=== PATIENT | female | born 1955 | race Caucasian/White ===

== ENCOUNTER 2018-07-02 18:53 | Emergency (ER) | payer MEDICAID, SELFPAY ==
[2018-07-02] VITALS (58 sets, daily range): BP systolic 56–137; BP diastolic 31–92; PULSE 0–126; RESP 11–42; TEMP 36.6; O2SAT 66–97
[2018-07-02] MEDS: Normal Saline 1,000 ML 1000 ML IV ×2 (19:17→19:20)
--- NOTE | 2018-07-02 19:21 | DI.CT_ITS ---
SYMPTOMS/DIAGNOSIS: PROFUSE DIARRHEA, RIGHT LOWER QUADRANT TENDERNESS CHEST, ABDOMEN AND PELVIC CT: Images were performed from the clavicles through the ischial tuberosities after IV and without oral contrast. CHEST CT: There is a tiny left pleural effusion. There are dependent changes seen posteriorly in the lungs. No pneumothorax is seen. There are fractures of the left 7th and 8th ribs anterolaterally. There is no pneumothorax. There is fluid seen within the esophagus, which could indicate reflux. No thoracic spine fracture is seen. A catheter is noted in the superior vena cava. ABDOMEN AND PELVIS: The liver, spleen, gallbladder, adrenals and kidneys appear intact. The pancreas is somewhat atrophic. Fluid is seen throughout the colon, which also shows some wall thickening. The findings are consistent with colitis. The findings appear most prominent in the transverse and ascending colon. The appendix appears normal. There is no small bowel dilatation, free air or free fluid. There is calcification in the aorta but no evidence of an aneurysm. The kidneys, bladder, uterus and ovaries are unremarkable. There is a small fatty-containing umbilical hernia. Degenerative changes are noted in the spine. IMPRESSION: Left anterolateral 7th and 8th rib fractures. No pneumothorax. Wall thickening of the ascending and transverse colon could indicate colitis.
[2018-07-02 19:47] LABS: Abs Immature Grans 0.08 k/cumm (0.0-0.09); Absolute Basophil Count 0.05 k/cumm (0.0-0.2); Basophils % 0.2; Eosinophils % 1.2; HCT 47.1 % (36.0-46.0); HGB 15.7 g/dL (12.0-15.5); Immature Grans % 0.3; Lymphocytes % 5.4; Mean Corp. HGB Concentration 33.3 g/dL (32.0-36.0); Mean Corpuscular Hemoglobin 29.5 pg (27.0-33.0); Mean Corpuscular Volume 88.5 fL (80-95); Mean Platelet Volume 10.6 fL (8.0-11.0); Monocytes % 4.4; Neutrophils % 88.5; Platelet Count 361 x1000/uL (130-400); RBC 5.32 m/cumm (4.00-5.20); RBC Distribution Width 14.1 % (11.7-14.6); White Blood Cell Count 24.73 k/cumm (4.4-10.8)
[2018-07-02] MEDS: Normal Saline-STERILE FIELD 0.9% 10 ML SYR 30 ML (19:55)
[2018-07-02 19:56] LABS: Lipase 107 U/L (73-393)
[2018-07-02 20:00] LABS: Absolute Lymphocyte Count 1.34 k/cumm (1.2-3.4); Absolute Monocyte Count 1.09 k/cumm (0.11-0.7); Absolute Neutrophil Count 21.89 k/cumm (1.2-6.7)
[2018-07-02 20:03] LABS: ALT 22 U/L (12-78); AST 18 U/L (15-37); Albumin 3.9 g/dL (3.4-5.0); Alkaline Phosphatase 168 U/L (46-116); Anion Gap 12.6 mmol/L (3-11); BUN 13 mg/dL (7-18); Bilirubin, Total 0.7 mg/dL (0.2-1.0); CO2 26.4 mmol/L (21.0-32.0); CREATININE 1.14 mg/dL (0.55-1.02); Calcium 9.5 mg/dL (8.5-10.1); Chloride 101 mmol/L (98-107); Estimated GFR 48.62 (mL/min/1.73m2); Glucose 126 mg/dL (70-100); Potassium 4.2 mmol/L (3.5-5.1); Sodium 140 mmol/L (136-145); Total Protein 8.2 g/dL (6.4-8.2)
--- NOTE | 2018-07-02 20:07 | DI.RAD_ITS ---
SYMPTOM/DIAGNOSIS: CENTRAL LINE PLACEMENT. PORTABLE CHEST: Comparison is made with 22 April 2016. The heart size is normal. Central venous catheter has been inserted via the right internal jugular The tip lies at the lower SVC. No pneumothorax, infiltrate or effusion seen. IMPRESSION: Satisfactory positioning of right internal jugular catheter.
[2018-07-02 20:23] LABS: TSH 1.21 uIU/mL (0.358-3.74)
[2018-07-02] MEDS: Ondansetron 4 MG/2 ML VIAL IVP (20:45)
--- NOTE | 2018-07-02 20:48 | W.ED.GENAD ---
Discharge Plan Disposition Patient Disposition: [facility] Condition: Improving Discharge Details Chief Complaint: GenMedical Clinical Impression: Colitis, Sepsis, Septic shock, Acute dehydration, Closed rib fracture Primary Care Provider: JOSE LEWIS ED Provider: Jose Trujillo Home Meds and New Rx's Prescriptions: No Action fluoxetine [Prozac] 40 MG capsule 80 mg PO DAILY RF: 0 aspirin [Aspirin Low Dose] 81 MG tablet,delayed release (DR/EC) 81 mg PO DAILY RF: 0 simvastatin 40 MG tablet 40 mg PO DAILY RF: 0 amitriptyline 25 MG tablet 25 mg PO HS RF: 0 oxybutynin chloride 5 MG tablet extended release 24hr 10 mg PO DAILY RF: 0 ranitidine HCl 150 MG capsule 150 mg PO BID RF: 0 albuterol sulfate [Proventil HFA] 6.7 GM HFA aerosol inhaler 2 puff Inhalation Q4H PRN RF: 0 hydromorphone [Dilaudid] 4 MG tablet 4 mg PO Q4H PRN RF: 0 fluticasone [Flonase Allergy Relief] 9.9 ML spray,suspension 9.9 ml NS RF: 0 naproxen 500 MG tablet 500 mg PO DAILY RF: 0 nystatin (bulk) 1 EACH powder 1 ea Topical BID RF: 0 cetirizine [Zyrtec] 10 MG capsule 10 mg PO DAILY RF: 0 enalapril maleate 5 MG tablet 5 mg PO DAILY RF: 0 Discharge Data Discharge Date/Time-TO BE ENTERED AT DEPARTURE: 07/03/18 01:20 Medical Decision Making <Kareem Brown DO - Last Filed: 07/03/18 14:09> [facility] Narrative Medical decision making narrative: 1930 p.m. This is a pleasant 62-year-old female who presents for abdominal pain, nausea, and vomiting. 2 days ago she had a rib fracture after hitting a rock while swimming. She has been doing well since then however 2 hours prior to arrival she fell onto a pile of yard sale items, and has had pain in her abdomen ever since, with associated vomiting and diffuse watery diarrhea. She does not have red flags of foreign travel or antibiotic use or sick contacts. Physical exam demonstrates a tender abdomen, with rebound in the right lower quadrant. She has her tenderness in her chest secondary to her rib fractures which is all reproducible, but no other signs of significant trauma. Vital signs are stable at this point. Temperature is normal. We will get a laboratory workup, perform imaging of the chest abdomen and pelvis to rule out any acute process versus worsening process, as well as appendicitis or other acute intra-abdominal pathology. Of note bedside ultrasound was performed on assessment and patient demonstrates good lung sliding bilaterally. Bedside fast exam was complicated secondary to the patient's body habitus. 2030 p.m. Although the patient's initial vital signs were normal I was called into the room to assess the patient as her repeat blood pressures have been decreasing. Initial blood pressure was 134/85 however over the last 10-15 minutes the patient's blood pressures have been steadily dropping, most recent blood pressure was confirmed twice on different arms and by manual pressure as well and is confirmed to be in the 50 systolic. Patient is tachycardic. A second IV was ordered, 2 L of normal saline were pressure bagged for administration. After the first liter the patient had no improvement of her blood pressure. The decision was made for definitive IV access, as well as potential for pressor use. A right IJ was successfully placed without complication. Portable chest x-ray reveals good placement. I have added lactate, blood cultures, we will start the patient on broad-spectrum antibiotics. We will continue IV fluid resuscitation and send her down to CT scan immediately to evaluate for any acute intra-abdominal process. Differential at this time includes intra-abdominal bleeding, severe chronic dehydration secondary to vomiting and profuse diarrhea, sepsis. EKG 20: 21 Rate 97, KS 134, QTc 478, QRS 96, sinus rhythm, no significant ST elevations or depressions. No significant T-wave inversions. 9 CT scan has been performed and demonstrates diffuse swelling in the colon throughout. Concerning for pancolitis. We are still awaiting results from formal radiology read. Please have discussed the case with Dr. Long, the on-call surgeon, and she will come and evaluate the patient review the images. The patient will be signed out to my colleague Dr. Trujillo. 2219. Patient has been seen and assessed by surgery. They do not feel that she requires any acute surgical management at this time. They do agree with the current plan. CT scan results have returned from virtual radiology and show CT findings of the colon suggesting infectious inflammatory colitis with diffuse fluid throughout the colon with mild mucosal thickening especially through the transverse portion of the colon. There is also a left seventh and eighth rib fractures. We will contact the hospitalist for admission to the medical service. 30 minutes of critical care time was spent on this patient reviewing labs, clinical disposition, consultation with surgical and medical specialists. Procedure: Internal Jugular Central Venous Catheter Indication: Hemodynamic monitoring/Intravenous access PROCEDURE SUMMARY: A time-out was performed. The patient?s right neck region was prepped and draped in sterile fashion using chlorhexidine scrub. Anesthesia was achieved with 1% lidocaine. The internal jugular vein was accessed under ultrasound guidance using a finder needle.Venous blood was withdrawn. A guidewire was advanced through the needle. A small incision was made with a 10 blade scalpel and the dilator was advanced over the guidewire until appropriate dilation was obtained. The dilator was removed and a triple lumen catheter was advanced over the guidewire and secured into place with 2 simple interrupted sutures. At time of procedure completion, all ports aspirated and flushed properly. Post-procedure x-ray shows the tip of the catheter within the superior vena cava. ESTIMATED BLOOD LOSS: 5ml?s The patient tolerated the procedure well there were no complications. Lab Data Lab Results 07/02/18 07/02/18 07/02/18 Range/Units 19:40 19:40 19:40 WBC 24.73 H (4.4-10.8) k/cumm RBC 5.32 H (4.00-5.20) m/cumm Hgb 15.7 H (12.0-15.5) g/dL Hct 47.1 H (36.0-46.0) % MCV 88.5 (80-95) fL MCH 29.5 (27.0-33.0) pg MCHC 33.3 (32.0-36.0) g/dL RDW 14.1 (11.7-14.6) % Plt Count 361 (130-400) x1000/uL MPV 10.6 (8.0-11.0) fL Immature Gran % 0.3 Neutrophils % 88.5 Lymphocytes % 5.4 Monocytes % 4.4 Eosinophils % 1.2 Basophils % 0.2 Absolute Neutrophils 21.89 H (1.2-6.7) k/cumm Absolute Lymphocytes 1.34 (1.2-3.4) k/cumm Absolute Monocytes 1.09 H (0.11-0.7) k/cumm Absolute Eosinophils 0.30 (0.0-0.7) k/cumm Absolute Basophils 0.05 (0.0-0.2) k/cumm Differential Comment Comment Sodium 140 (136-145) mmol/L Potassium 4.2 (3.5-5.1) mmol/L Chloride 101 (98-107) mmol/L Carbon Dioxide 26.4 (21.0-32.0) mmol/L Anion Gap 12.6 H (3-11) mmol/L BUN 13 (7-18) mg/dL Creatinine 1.14 H (0.55-1.02) mg/dL Estimated GFR/1.73 m2 48.62 (mL/min/1.73m2) Glucose 126 H (70-100) mg/dL Lactate (0.6-1.4) mmol/L Calcium 9.5 (8.5-10.1) mg/dL Total Bilirubin 0.7 (0.2-1.0) mg/dL AST 18 (15-37) U/L ALT 22 (12-78) U/L Alkaline Phosphatase 168 H (46-116) U/L Total Protein 8.2 (6.4-8.2) g/dL Albumin 3.9 (3.4-5.0) g/dL Lipase 107 (73-393) U/L TSH (0.358-3.74) uIU/mL 07/02/18 07/02/18 Range/Units 19:40 20:24 WBC (4.4-10.8) k/cumm RBC (4.00-5.20) m/cumm Hgb (12.0-15.5) g/dL Hct (36.0-46.0) % MCV (80-95) fL MCH (27.0-33.0) pg MCHC (32.0-36.0) g/dL RDW (11.7-14.6) % Plt Count (130-400) x1000/uL MPV (8.0-11.0) fL Immature Gran % Neutrophils % Lymphocytes % Monocytes % Eosinophils % Basophils % Absolute Neutrophils (1.2-6.7) k/cumm Absolute Lymphocytes (1.2-3.4) k/cumm Absolute Monocytes (0.11-0.7) k/cumm Absolute Eosinophils (0.0-0.7) k/cumm Absolute Basophils (0.0-0.2) k/cumm Differential Comment Sodium (136-145) mmol/L Potassium (3.5-5.1) mmol/L Chloride (98-107) mmol/L Carbon Dioxide (21.0-32.0) mmol/L Anion Gap (3-11) mmol/L BUN (7-18) mg/dL Creatinine (0.55-1.02) mg/dL Estimated GFR/1.73 m2 (mL/min/1.73m2) Glucose (70-100) mg/dL Lactate 2.0 H (0.6-1.4) mmol/L Calcium (8.5-10.1) mg/dL Total Bilirubin (0.2-1.0) mg/dL AST (15-37) U/L ALT (12-78) U/L Alkaline Phosphatase (46-116) U/L Total Protein (6.4-8.2) g/dL Albumin (3.4-5.0) g/dL Lipase (73-393) U/L TSH 1.21 (0.358-3.74) uIU/mL <Jose Trujillo MD - Last Filed: 07/03/18 00:44> [facility] Narrative Medical decision making narrative: Received signout from Dr Brown on the patient. Please see his note regarding details of the history, presentation, exam and medical decision-making. Patient was seen by Dr. Corey in the emergency department. [place] to have the need for intensive monitoring and ICU level care which is not available at [facility]. Patient has had persistently low blood pressures currently approximately 93 systolic. She has had 3500 cc of fluid, has made 600 cc of urine, and had a documented 1200 cc stool output. Patient has been covered with broad-spectrum antibiotics, repeat lactic acid level obtained at 0.6 Case discussed with on-call hospitalist at [facility], Dr España. He states that the patient is responding to current management, he asks that we keep the patient at [facility], and contact [facility] if need for pressors or ICU level care. [facility], the patient home institution unable to accept in transfer. No bed available at [facility]. Patient accepted in transfer to [facility] by Dr Oh. HPI - General Adult <Kareem Brown DO - Last Filed: 07/03/18 14:09> General Date/Time Provider Initiated Documentation: 07/02/18 19:21. HPI Narrative: This is a pleasant 62-year-old female with a past medical history significant for asthma, PTSD, hyperlipidemia who takes a daily aspirin, and hypertension. She presents today for nausea vomiting and diarrhea. Patient states that 2 days ago she was [place], slid [place] some rocks and hit her left ribs on a rock. She went to a local emergency department where she was diagnosed with a rib fracture, and sent home on indomethacin. She has been taking that medication since then. She has been doing well until roughly 2 hours prior to arrival when she was walking, tripped, and fell on her anterior abdomen. She fell on a pile of various articles from a garage/yard sale. After that she noted moderate abdominal pain, she had diffuse watery diarrhea generalized abdominal pain worse in the lower quadrants bilaterally, as well as nausea with some vomiting. There are no aggravating or relieving factors. She denies seeing any blood in the vomit or the diarrhea. She does admit to the continued chest pain, states that it is pleuritic. Her unchanged since the initial incident. She denies any arm pain, neck pain, numbness, tingling. Patient denies any IV or illicit drug use. She denies any previous abdominal surgeries. She denies any recent antibiotic use. She denies any other sick contacts. She denies any foreign travel. She has no other complaints at this time. Related Data Home Medications Medication Instructions Recorded Confirmed albuterol sulfate [Proventil Hfa] 2 puff INHALATION Q4H PRN inhaler 03/08/16 07/02/18 NS amitriptyline 25 mg PO HS tab-cap NS 03/08/16 07/02/18 aspirin [Low Dose Aspirin Ec] 81 mg PO DAILY tab-cap NS 03/08/16 07/02/18 cetirizine [Zyrtec] 10 mg PO DAILY NS 03/08/16 07/02/18 enalapril maleate 5 mg PO DAILY tab-cap NS 03/08/16 07/02/18 fluoxetine [Prozac] 80 mg PO DAILY tab-cap NS 03/08/16 07/02/18 fluticasone [Flonase Allergy 9.9 ml NS 03/08/16 Relief] hydromorphone [Dilaudid] 4 mg PO Q4H PRN tab-cap NS 03/08/16 07/02/18 naproxen 500 mg PO DAILY tab-cap NS 03/08/16 07/02/18 nystatin (bulk) 1 ea TOPICAL BID NS 03/08/16 oxybutynin chloride 10 mg PO DAILY tab-cap NS 03/08/16 07/02/18 ranitidine HCl 150 mg PO BID tab-cap NS 03/08/16 07/02/18 simvastatin 40 mg PO DAILY tab-cap NS 03/08/16 07/02/18 Allergies Allergy/AdvReac Type Severity Reaction Status Date / Time diclofenac sodium Allergy Severe Unverified 07/02/18 20:29 [From Voltaren] sodium sulfate Allergy Severe Unverified 07/02/18 20:29 chlorthalidone Allergy Mild Unverified 07/02/18 20:29 General Stated Complaint: GenMedical WILLIE: 2 Review of Systems <Kareem Brown DO - Last Filed: 07/03/18 14:09> Review of Systems 10 point review of systems was performed, pertinent positives and negatives are noted in the history of present illness. Exam <Kareem Brown DO - Last Filed: 07/03/18 14:09> Narrative Exam Narrative: 1.Const: Well-nourished, Well-developed, appearing stated age 2.Eyes: PERRL, no conjunctival injection, and symmetrical lids. 3.ENT: Atraumatic external nose and ears. Moist MM. Neck: Symmetric, trachea midline, No thyromegaly. There is no evidence of raccoon eyes, carlton sign, CSF rhinorrhea, mastoid tenderness, cranial crepitus, hemotympanum, exophthalmos, or hyphema. Patient demonstrates intact dentition with no signs of tooth avulsion or fracture, no signs of jaw deformity, no evidence of a LeFort's fracture, with an intact palate, nose and orbital region. There is no evidence of a nasal septal hematoma. No proptosis. Jaw closes symmetrically. Airway is clear. 4.CVS: +S1/S2, No murmurs or gallops. Peripheral pulses 2+ and equal in all extremities. Brisk capillary refill in all extremities. Generalized tenderness around chest, worse on the left than the right. Some bruising is noted. No evidence of flail chest. Portable bedside ultrasound upon patient's arrival demonstrated good lung sliding bilaterally. 5.RESP: Unlabored respiratory effort. Clear to auscultation bilaterally. No wheezes rales or rhonchi 6.GI: Soft,, voluntary guarding. Generalized tenderness throughout. Worse in the lower abdominal quadrants bilaterally, particularly the right. Patient does have positive rebound on the right lower quadrant. No evidence of bruising, perforation or trauma. 7.MSK: Normocephalic/Atraumatic, Extremities w/o deformity or ttp No cyanosis or clubbing, Normal movement of all extremities, pelvis is stable, no pain with logroll of the lower extremities. Normal movement of the upper extremities. 8.Skin: Warm, Dry. No rashes or lesions. 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 Sensation grossly intact, no focal neurologic deficits. 10.Psych: (AAO) x3. Appropriate mood and affect Course <Kareem Brown, - Last Filed: 07/03/18 14:09> Vital Signs Temperature 36.6 C 07/02/18 19:15 Pulse 103 H 07/02/18 19:15 Respiratory Rate 24 07/02/18 19:15 Blood Pressure 134/85 07/02/18 19:15 Pulse Oximetry 97 07/02/18 19:15 Temperature 36.6 C 07/02/18 19:15 Pulse 92 H 07/02/18 20:32 Respiratory Rate 20 07/02/18 20:32 Blood Pressure 124/66 07/02/18 20:32 Pulse Oximetry 95 07/02/18 20:32 Lab/Test Results Lab/Test Results: Laboratory Tests 07/02/18 07/02/18 07/02/18 19:40 19:40 19:40 WBC 24.73 H RBC 5.32 H Hgb 15.7 H Hct 47.1 H MCV 88.5 MCH 29.5 MCHC 33.3 RDW 14.1 Plt Count 361 MPV 10.6 Immature Gran % 0.3 Neutrophils % 88.5 Lymphocytes % 5.4 Monocytes % 4.4 Eosinophils % 1.2 Basophils % 0.2 Absolute Neutrophils 21.89 H Absolute Lymphocytes 1.34 Absolute Monocytes 1.09 H Absolute Eosinophils 0.30 Absolute Basophils 0.05 Differential Comment Comment Sodium 140 Potassium 4.2 Chloride 101 Carbon Dioxide 26.4 Anion Gap 12.6 H BUN 13 Creatinine 1.14 H Estimated GFR/1.73 m2 48.62 Glucose 126 H Lactate Calcium 9.5 Total Bilirubin 0.7 AST 18 ALT 22 Alkaline Phosphatase 168 H Total Protein 8.2 Albumin 3.9 Lipase 107 TSH 07/02/18 07/02/18 19:40 20:24 WBC RBC Hgb Hct MCV MCH MCHC RDW Plt Count MPV Immature Gran % Neutrophils % Lymphocytes % Monocytes % Eosinophils % Basophils % Absolute Neutrophils Absolute Lymphocytes Absolute Monocytes Absolute Eosinophils Absolute Basophils Differential Comment Sodium Potassium Chloride Carbon Dioxide Anion Gap BUN Creatinine Estimated GFR/1.73 m2 Glucose Lactate 2.0 H Calcium Total Bilirubin AST ALT Alkaline Phosphatase Total Protein Albumin Lipase TSH 1.21 Sign Out <Kareem Brown DO - Last Filed: 07/03/18 14:09> Sign Out Data: Sign Out Comment: Sepsis, liriano colitis, admit to [facility] Last updated by Kareem Brown DO at 07/02/18 22:31
--- NOTE | 2018-07-02 20:54 | ED.GENADUL_ITS ---
Discharge Plan Disposition Patient Disposition: [facility] Condition: Improving Discharge Details Chief Complaint: GenMedical Clinical Impression: Colitis, Sepsis, Septic shock, Acute dehydration, Closed rib fracture Primary Care Provider: JOSE LEWIS ED Provider: Jose Trujillo Home Meds and New Rx's Prescriptions: No Action fluoxetine [Prozac] 40 MG capsule 80 mg PO DAILY RF: 0 aspirin [Aspirin Low Dose] 81 MG tablet,delayed release (DR/EC) 81 mg PO DAILY RF: 0 simvastatin 40 MG tablet 40 mg PO DAILY RF: 0 amitriptyline 25 MG tablet 25 mg PO HS RF: 0 oxybutynin chloride 5 MG tablet extended release 24hr 10 mg PO DAILY RF: 0 ranitidine HCl 150 MG capsule 150 mg PO BID RF: 0 albuterol sulfate [Proventil HFA] 6.7 GM HFA aerosol inhaler 2 puff Inhalation Q4H PRN RF: 0 hydromorphone [Dilaudid] 4 MG tablet 4 mg PO Q4H PRN RF: 0 fluticasone [Flonase Allergy Relief] 9.9 ML spray,suspension 9.9 ml NS RF: 0 naproxen 500 MG tablet 500 mg PO DAILY RF: 0 nystatin (bulk) 1 EACH powder 1 ea Topical BID RF: 0 cetirizine [Zyrtec] 10 MG capsule 10 mg PO DAILY RF: 0 enalapril maleate 5 MG tablet 5 mg PO DAILY RF: 0 Discharge Data Discharge Date/Time-TO BE ENTERED AT DEPARTURE: 07/03/18 01:20 Medical Decision Making <Kareem Brown DO - Last Filed: 07/03/18 14:09> [facility] Narrative Medical decision making narrative: 1930 p.m. This is a pleasant 62-year-old female who presents for abdominal pain , nausea, and vomiting. 2 days ago she had a rib fracture after hitting a rock while swimming. She has been doing well since then however 2 hours prior to arrival she fell onto a pile of yard sale items, and has had pain in her abdomen ever since, with associated vomiting and diffuse watery diarrhea. She does not have red flags of foreign travel or antibiotic use or sick contacts. Physical exam demonstrates a tender abdomen, with rebound in the right lower quadrant. She has her tenderness in her chest secondary to her rib fractures which is all reproducible, but no other signs of significant trauma. Vital signs are stable at this point. Temperature is normal. We will get a laboratory workup, perform imaging of the chest abdomen and pelvis to rule out any acute process versus worsening process, as well as appendicitis or other acute intra-abdominal pathology. Of note bedside ultrasound was performed on assessment and patient demonstrates good lung sliding bilaterally. Bedside fast exam was complicated secondary to the patient's body habitus. 2030 p.m. Although the patient's initial vital signs were normal I was called into the room to assess the patient as her repeat blood pressures have been decreasing. Initial blood pressure was 134/85 however over the last 10-15 minutes the patient's blood pressures have been steadily dropping, most recent blood pressure was confirmed twice on different arms and by manual pressure as well and is confirmed to be in the 50 systolic. Patient is tachycardic. A second IV was ordered, 2 L of normal saline were pressure bagged for administration. After the first liter the patient had no improvement of her blood pressure. The decision was made for definitive IV access, as well as potential for pressor use. A right IJ was successfully placed without complication. Portable chest x-ray reveals good placement. I have added lactate, blood cultures, we will start the patient on broad-spectrum antibiotics. We will continue IV fluid resuscitation and send her down to CT scan immediately to evaluate for any acute intra-abdominal process. Differential at this time includes intra-abdominal bleeding, severe chronic dehydration secondary to vomiting and profuse diarrhea, sepsis. EKG 20: 21 Rate 97, IN 134, QTc 478, QRS 96, sinus rhythm, no significant ST elevations or depressions. No significant T-wave inversions. 9 CT scan has been performed and demonstrates diffuse swelling in the colon throughout. Concerning for pancolitis. We are still awaiting results from formal radiology read. Please have discussed the case with Dr. Long, the on- call surgeon, and she will come and evaluate the patient review the images. The patient will be signed out to my colleague Dr. Trujillo. 2219. Patient has been seen and assessed by surgery. They do not feel that she requires any acute surgical management at this time. They do agree with the current plan. CT scan results have returned from virtual radiology and show CT findings of the colon suggesting infectious inflammatory colitis with diffuse fluid throughout the colon with mild mucosal thickening especially through the transverse portion of the colon. There is also a left seventh and eighth rib fractures. We will contact the hospitalist for admission to the medical service. 30 minutes of critical care time was spent on this patient reviewing labs, clinical disposition, consultation with surgical and medical specialists. Procedure: Internal Jugular Central Venous Catheter Indication: Hemodynamic monitoring/Intravenous access PROCEDURE SUMMARY: A time-out was performed. The patient?s right neck region was prepped and draped in sterile fashion using chlorhexidine scrub. Anesthesia was achieved with 1% lidocaine. The internal jugular vein was accessed under ultrasound guidance using a finder needle.Venous blood was withdrawn. A guidewire was advanced through the needle. A small incision was made with a 10 blade scalpel and the dilator was advanced over the guidewire until appropriate dilation was obtained. The dilator was removed and a triple lumen catheter was advanced over the guidewire and secured into place with 2 simple interrupted sutures. At time of procedure completion, all ports aspirated and flushed properly. Post-procedure x-ray shows the tip of the catheter within the superior vena cava. ESTIMATED BLOOD LOSS: 5ml?s The patient tolerated the procedure well there were no complications. Lab Data Lab Results 07/02/18 07/02/18 07/02/18 Range/Units 19:40 19:40 19:40 WBC 24.73 H (4.4-10.8) k/cumm RBC 5.32 H (4.00-5.20) m/cumm Hgb 15.7 H (12.0-15.5) g/dL Hct 47.1 H (36.0-46.0) % MCV 88.5 (80-95) fL MCH 29.5 (27.0-33.0) pg MCHC 33.3 (32.0-36.0) g/dL RDW 14.1 (11.7-14.6) % Plt Count 361 (130-400) x1000/uL MPV 10.6 (8.0-11.0) fL Immature Gran % 0.3 Neutrophils % 88.5 Lymphocytes % 5.4 Monocytes % 4.4 Eosinophils % 1.2 Basophils % 0.2 Absolute Neutrophils 21.89 H (1.2-6.7) k/cumm Absolute Lymphocytes 1.34 (1.2-3.4) k/cumm Absolute Monocytes 1.09 H (0.11-0.7) k/cumm Absolute Eosinophils 0.30 (0.0-0.7) k/cumm Absolute Basophils 0.05 (0.0-0.2) k/cumm Differential Comment Comment Sodium 140 (136-145) mmol/L Potassium 4.2 (3.5-5.1) mmol/L Chloride 101 (98-107) mmol/L Carbon Dioxide 26.4 (21.0-32.0) mmol/L Anion Gap 12.6 H (3-11) mmol/L BUN 13 (7-18) mg/dL Creatinine 1.14 H (0.55-1.02) mg/dL Estimated GFR/1.73 m2 48.62 (mL/min/1.73m2) Glucose 126 H (70-100) mg/dL Lactate (0.6-1.4) mmol/L Calcium 9.5 (8.5-10.1) mg/dL Total Bilirubin 0.7 (0.2-1.0) mg/dL AST 18 (15-37) U/L ALT 22 (12-78) U/L Alkaline Phosphatase 168 H (46-116) U/L Total Protein 8.2 (6.4-8.2) g/dL Albumin 3.9 (3.4-5.0) g/dL Lipase 107 (73-393) U/L TSH (0.358-3.74) uIU/mL 07/02/18 07/02/18 Range/Units 19:40 20:24 WBC (4.4-10.8) k/cumm RBC (4.00-5.20) m/cumm Hgb (12.0-15.5) g/dL Hct (36.0-46.0) % MCV (80-95) fL MCH (27.0-33.0) pg MCHC (32.0-36.0) g/dL RDW (11.7-14.6) % Plt Count (130-400) x1000/uL MPV (8.0-11.0) fL Immature Gran % Neutrophils % Lymphocytes % Monocytes % Eosinophils % Basophils % Absolute Neutrophils (1.2-6.7) k/cumm Absolute Lymphocytes (1.2-3.4) k/cumm Absolute Monocytes (0.11-0.7) k/cumm Absolute Eosinophils (0.0-0.7) k/cumm Absolute Basophils (0.0-0.2) k/cumm Differential Comment Sodium (136-145) mmol/L Potassium (3.5-5.1) mmol/L Chloride (98-107) mmol/L Carbon Dioxide (21.0-32.0) mmol/L Anion Gap (3-11) mmol/L BUN (7-18) mg/dL Creatinine (0.55-1.02) mg/dL Estimated GFR/1.73 m2 (mL/min/1.73m2) Glucose (70-100) mg/dL Lactate 2.0 H (0.6-1.4) mmol/L Calcium (8.5-10.1) mg/dL Total Bilirubin (0.2-1.0) mg/dL AST (15-37) U/L ALT (12-78) U/L Alkaline Phosphatase (46-116) U/L Total Protein (6.4-8.2) g/dL Albumin (3.4-5.0) g/dL Lipase (73-393) U/L TSH 1.21 (0.358-3.74) uIU/mL <Jose Trujillo MD - Last Filed: 07/03/18 00:44> [facility] Narrative Medical decision making narrative: Received signout from Dr Brown on the patient. Please see his note regarding details of the history, presentation, exam and medical decision-making. Patient was seen by Dr. Corey in the emergency department. [place] to have the need for intensive monitoring and ICU level care which is not available at [facility]. Patient has had persistently low blood pressures currently approximately 93 systolic. She has had 3500 cc of fluid, has made 600 cc of urine, and had a documented 1200 cc stool output. Patient has been covered with broad-spectrum antibiotics, repeat lactic acid level obtained at 0.6 Case discussed with on-call hospitalist at [facility], Dr España. He states that the patient is responding to current management, he asks that we keep the patient at [facility], and contact [facility] if need for pressors or ICU level care. [facility], the patient home institution unable to accept in transfer. No bed available at [facility]. Patient accepted in transfer to [facility] by Dr Oh. HPI - General Adult <Kareem Brown DO - Last Filed: 07/03/18 14:09> General Date/Time Provider Initiated Documentation: 07/02/18 19:21 . HPI Narrative: This is a pleasant 62-year-old female with a past medical history significant for asthma, PTSD, hyperlipidemia who takes a daily aspirin, and hypertension. She presents today for nausea vomiting and diarrhea. Patient states that 2 days ago she was [place], slid [place] some rocks and hit her left ribs on a rock. She went to a local emergency department where she was diagnosed with a rib fracture, and sent home on indomethacin. She has been taking that medication since then. She has been doing well until roughly 2 hours prior to arrival when she was walking, tripped , and fell on her anterior abdomen. She fell on a pile of various articles from a garage/yard sale. After that she noted moderate abdominal pain, she had diffuse watery diarrhea generalized abdominal pain worse in the lower quadrants bilaterally, as well as nausea with some vomiting. There are no aggravating or relieving factors. She denies seeing any blood in the vomit or the diarrhea. She does admit to the continued chest pain, states that it is pleuritic. Her unchanged since the initial incident. She denies any arm pain, neck pain, numbness, tingling. Patient denies any IV or illicit drug use. She denies any previous abdominal surgeries. She denies any recent antibiotic use. She denies any other sick contacts. She denies any foreign travel. She has no other complaints at this time. Related Data Home Medications Medication Instructions Recorded Confirmed albuterol sulfate [Proventil Hfa] 2 puff INHALATION Q4H PRN inhaler 03/08/16 NS amitriptyline 25 mg PO HS tab-cap NS 03/08/16 07/02/18 aspirin [Low Dose Aspirin Ec] 81 mg PO DAILY tab-cap NS 03/08/16 07/02/18 cetirizine [Zyrtec] 10 mg PO DAILY NS 03/08/16 07/02/18 enalapril maleate 5 mg PO DAILY tab-cap NS 03/08/16 07/02/18 fluoxetine [Prozac] 80 mg PO DAILY tab-cap NS 03/08/16 07/02/18 fluticasone [Flonase Allergy 9.9 ml NS 03/08/16 Relief] hydromorphone [Dilaudid] 4 mg PO Q4H PRN tab-cap NS 03/08/16 07/02/18 naproxen 500 mg PO DAILY tab-cap NS 03/08/16 07/02/18 nystatin (bulk) 1 ea TOPICAL BID NS 03/08/16 oxybutynin chloride 10 mg PO DAILY tab-cap NS 03/08/16 07/02/18 ranitidine HCl 150 mg PO BID tab-cap NS 03/08/16 07/02/18 simvastatin 40 mg PO DAILY tab-cap NS 03/08/16 07/02/18 Allergies Allergy/AdvReac Type Severity Reaction Status Date / Time diclofenac sodium Allergy Severe Unverified 07/02/18 20:29 [From Voltaren] sodium sulfate Allergy Severe Unverified 07/02/18 20:29 chlorthalidone Allergy Mild Unverified 07/02/18 20:29 General Stated Complaint: GenMedical WILLIE: 2 Review of Systems <Kareem Brown DO - Last Filed: 07/03/18 14:09> Review of Systems 10 point review of systems was performed, pertinent positives and negatives are noted in the history of present illness. Exam <Kareem Brown DO - Last Filed: 07/03/18 14:09> Narrative Exam Narrative: 1.Const: Well-nourished, Well-developed, appearing stated age 2.Eyes: PERRL, no conjunctival injection, and symmetrical lids. 3.ENT: Atraumatic external nose and ears. Moist MM. Neck: Symmetric, trachea midline, No thyromegaly. There is no evidence of raccoon eyes, carlton sign, CSF rhinorrhea, mastoid tenderness, cranial crepitus, hemotympanum, exophthalmos , or hyphema. Patient demonstrates intact dentition with no signs of tooth avulsion or fracture, no signs of jaw deformity, no evidence of a LeFort's fracture, with an intact palate, nose and orbital region. There is no evidence of a nasal septal hematoma. No proptosis. Jaw closes symmetrically. Airway is clear. 4.CVS: +S1/S2, No murmurs or gallops. Peripheral pulses 2+ and equal in all extremities. Brisk capillary refill in all extremities. Generalized tenderness around chest, worse on the left than the right. Some bruising is noted. No evidence of flail chest. Portable bedside ultrasound upon patient's arrival demonstrated good lung sliding bilaterally. 5.RESP: Unlabored respiratory effort. Clear to auscultation bilaterally. No wheezes rales or rhonchi 6.GI: Soft,, voluntary guarding. Generalized tenderness throughout. Worse in the lower abdominal quadrants bilaterally, particularly the right. Patient does have positive rebound on the right lower quadrant. No evidence of bruising , perforation or trauma. 7.MSK: Normocephalic/Atraumatic, Extremities w/o deformity or ttp No cyanosis or clubbing, Normal movement of all extremities, pelvis is stable, no pain with logroll of the lower extremities. Normal movement of the upper extremities. 8.Skin: Warm, Dry. No rashes or lesions. 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 Sensation grossly intact, no focal neurologic deficits. 10.Psych: (AAO) x3. Appropriate mood and affect Course <Kareem Brown, - Last Filed: 07/03/18 14:09> Vital Signs Temperature 36.6 C 07/02/18 19:15 Pulse 103 H 07/02/18 19:15 Respiratory Rate 24 07/02/18 19:15 Blood Pressure 134/85 07/02/18 19:15 Pulse Oximetry 97 07/02/18 19:15 Temperature 36.6 C 07/02/18 19:15 Pulse 92 H 07/02/18 20:32 Respiratory Rate 20 07/02/18 20:32 Blood Pressure 124/66 07/02/18 20:32 Pulse Oximetry 95 07/02/18 20:32 Lab/Test Results Lab/Test Results: Laboratory Tests 07/02/18 07/02/18 07/02/18 19:40 19:40 19:40 WBC 24.73 H RBC 5.32 H Hgb 15.7 H Hct 47.1 H MCV 88.5 MCH 29.5 MCHC 33.3 RDW 14.1 Plt Count 361 MPV 10.6 Immature Gran % 0.3 Neutrophils % 88.5 Lymphocytes % 5.4 Monocytes % 4.4 Eosinophils % 1.2 Basophils % 0.2 Absolute Neutrophils 21.89 H Absolute Lymphocytes 1.34 Absolute Monocytes 1.09 H Absolute Eosinophils 0.30 Absolute Basophils 0.05 Differential Comment Comment Sodium 140 Potassium 4.2 Chloride 101 Carbon Dioxide 26.4 Anion Gap 12.6 H BUN 13 Creatinine 1.14 H Estimated GFR/1.73 m2 48.62 Glucose 126 H Lactate Calcium 9.5 Total Bilirubin 0.7 AST 18 ALT 22 Alkaline Phosphatase 168 H Total Protein 8.2 Albumin 3.9 Lipase 107 TSH 07/02/18 07/02/18 19:40 20:24 WBC RBC Hgb Hct MCV MCH MCHC RDW Plt Count MPV Immature Gran % Neutrophils % Lymphocytes % Monocytes % Eosinophils % Basophils % Absolute Neutrophils Absolute Lymphocytes Absolute Monocytes Absolute Eosinophils Absolute Basophils Differential Comment Sodium Potassium Chloride Carbon Dioxide Anion Gap BUN Creatinine Estimated GFR/1.73 m2 Glucose Lactate 2.0 H Calcium Total Bilirubin AST ALT Alkaline Phosphatase Total Protein Albumin Lipase TSH 1.21 Sign Out <Kareem Brown DO - Last Filed: 07/03/18 14:09> Sign Out Data: Sign Out Comment: Sepsis, liriano colitis, admit to [facility] Last updated by Kareem Brown DO at 07/02/18 22:31
--- NOTE | 2018-07-02 21:08 | DI.VRAD_ITS ---
EXAM: XR Chest, 1 View CLINICAL HISTORY: 62 years old, female; Signs and symptoms; Other: Central line placement TECHNIQUE: Frontal view of the chest. COMPARISON: RF - BARIUM SWALLOW UGI 2V CXR 04/22/2016 8:55 AM FINDINGS: Lungs: Unremarkable. No consolidation. Pleural space: Unremarkable. No pneumothorax. Heart: Unremarkable. No cardiomegaly. Mediastinum: Unremarkable. Bones/joints: Chronic osseous changes. Tubes, lines and devices: A right jugular central venous catheter is present with termination overlying the superior vena cava. IMPRESSION: 1. No acute findings. 2. Right jugular central line appears well-positioned. Dictated and Authenticated by: Tobias Matt MD. Ordering:ELLEN GARCES MD
[2018-07-02] MEDS: PIPERACILLIN/TAZO 4.5 GM in Normal Saline 100 ML IVPB (21:28)
[2018-07-02 21:45] LABS: Bilirubin Negative (Negative); Blood Negative (Negative); Clarity Sl Cloudy; Glucose Negative (Negative); Ketones Negative (Negative); Leukocyte Esterase Small (Negative); Nitrite Negative (Negative); Specific Gravity <= 1.005 (1.005-1.025); Urobilinogen 0.2 EU/dL (Up TO 0.2)
[2018-07-02] MEDS: Omnipaque 350 MG/ML 100 ML BTL IJ (21:46)
[2018-07-02 22:04] LABS: Bacteria Moderate HPF (Negative); C & S Indicated? No/Sq. Contamination; Casts Negative LPF (Negative); Crystals Negative HPF (Negative); Epithelial Cells Many HPF (Negative); Mucus Negative (Negative); Other Cells Negative (Negative); RBC 0-2 (0-2)
[2018-07-02] MEDS: VANCOMYCIN 2,000 MG in Normal Saline 500 ML 250 MG IVPB (22:09)
--- NOTE | 2018-07-02 22:15 | DI.VRAD_ITS ---
EXAM: CT Abdomen and Pelvis With Intravenous Contrast CLINICAL HISTORY: 62 years old, female; Pain; Other: Rlq; Other: Recent fall, rib pain; Patient HX: Profuse diarrhea, rlq tenderness, lt sided rib pain TECHNIQUE: Axial computed tomography images of the abdomen and pelvis with intravenous contrast. All CT scans at this facility use at least one of these dose optimization techniques: automated exposure control; mA and/or kV adjustment per patient size (includes targeted exams where dose is matched to clinical indication); or iterative reconstruction. This Coronal and sagittal reformatted images were created and reviewed. CONTRAST: 100 mL of OMNIPAQUE 350 administered intravenously. COMPARISON: No relevant prior studies available. FINDINGS: Lung bases: Unremarkable. No mass. No consolidation. ABDOMEN: Liver: Unremarkable. No mass. Gallbladder and bile ducts: Unremarkable. No calcified stones. No ductal dilation. Pancreas: Fatty atrophy of the pancreas is evident. No ductal dilation. Spleen: Unremarkable. No splenomegaly. Adrenals: Unremarkable. No mass. Kidneys and ureters: Unremarkable. No solid mass. No hydronephrosis. Stomach and bowel: There is diffuse fluid throughout the colon with mild mucosal thickening especially involving transverse portion of the colon. No evidence of obstruction. PELVIS: Appendix: No findings to suggest acute appendicitis. Bladder: Unremarkable. No mass. Reproductive: Unremarkable as visualized. ABDOMEN and PELVIS: Intraperitoneal space: Unremarkable. No free air. No significant fluid collection. Bones/joints: No acute fracture. No dislocation. Soft tissues: A fat filled umbilical hernia is noted. Vasculature: Atherosclerosis. No abdominal aortic aneurysm. Lymph nodes: Unremarkable. No enlarged lymph nodes. IMPRESSION: CT findings of the colon suggesting an infectious/inflammatory colitis. EXAM: CT Chest With Intravenous Contrast CLINICAL HISTORY: 62 years old, female; Pain; Other: Rlq; Other: Recent fall, rib pain; Patient HX: Profuse diarrhea, rlq tenderness, lt sided rib pain TECHNIQUE: Axial computed tomography images of the chest with intravenous contrast. All CT scans at this facility use at least one of these dose optimization techniques: automated exposure control; mA and/or kV adjustment per patient size (includes targeted exams where dose is matched to clinical indication); or iterative reconstruction. Coronal and sagittal reformatted images were created and reviewed. CONTRAST: 100 mL of OMNIPAQUE 350 administered intravenously. 100 mL of OMNIPAQUE 350 administered intravenously. COMPARISON: No relevant prior studies available. FINDINGS: Lungs: There is scattered mild scarring and atelectasis in the lungs. No significant consolidation. Minimal centrilobular emphysematous changes are present. Pleural space: Unremarkable. No pneumothorax. No significant effusion. Heart: Unremarkable. No cardiomegaly. No significant pericardial effusion. Mediastinum: There is reflux of fluid into the esophagus. Bones/joints: Left anterolateral seventh and eighth rib fractures are present. No dislocation. Soft tissues: Unremarkable. Vasculature: Unremarkable. No thoracic aortic aneurysm. Lymph nodes: Unremarkable. No enlarged lymph nodes. Tubes, lines and devices: A right central venous catheter is present in the superior vena cava. IMPRESSION: Left seventh and eighth rib fractures. Dictated and Authenticated by: Tobias Matt MD. Ordering:SUZAN NDIAYE MD
--- NOTE | 2018-07-02 22:34 | SCONE_ITS ---
Date of service: 07/02/18 Time of Service: 22:33 History of Present Illness Chief Complaint: Nausea, vomiting, diarrhea Narrative: 62 y/o female seen with her boyfriend in the ED. Patient has a known history of left rib fractures sustained yesterday when she went swimming in the river and slid down some rocks. She notes that today, she was in a hurry at home and tripped falling onto some boxes that were set aside for a yard sale. She landed on her abdomen. Shortly thereafter, she developed nausea , vomiting, and diarrhea. Diarrhea was nonbloody. Her nausea and vomiting have resolved. She had some abdominal tenderness earlier but it has resolved. She denies any recent travel, change in diet, or antibiotic use. She did drink some of the river water yesterday but states that she boiled it first. CT abd/ pelvis demonstrated fluid-filled colon with some mucosal thickening suggestive of infectious or inflammatory colitis primarily involving the transverse colon. Left 8th and 9th rib fractures also noted on CT. Patient had hypotension in the ED and required fluid resuscitation with central line placement. BP responded to fluid boluses. Assessment and Plan (1) Left rib fracture: Current visit: Yes Status: Acute Recommend supportive care with incentive spirometer, pain management. (2) Colitis: Current visit: Yes Status: Acute Abdominal symptoms and CT findings consistent with colitis. Suspect infectious etiology possibly related to river water. Await stool studies. Lactate - 2.0 and hypotension likely related to dehydration. BP normalized with IVF resuscitation. Elevated WBC likely reflects colitis as well as dehydration and recent trauma. Patient has been started on Zosyn and Vancomycin in the ED. May have clear liquids from surgical standpoint. Follow- up CBC. No indication for acute surgical intervention at this time. Review of Systems Review of Systems All systems reviewed & are unremarkable except as noted in HPI and below Constitutional Denies chills and Denies fever(s) Cardiovascular Denies chest pain and Denies palpitations Respiratory Denies cough and Reports pain on inspiration Gastrointestinal Denies hematochezia, Reports diarrhea, Reports nausea and Reports vomiting Genitourinary Denies hematuria and Denies dysuria Endocrine Denies palpitations PFSH Family History Other Essential hypertension Medical History PTSD (post-traumatic stress disorder) (Chronic) Anxiety disorder Burn Carpal tunnel syndrome Chest pain (05/24/06) Colon polyps GERD (gastroesophageal reflux disease) Hyperlipidemia Hypertension Left knee dislocation (11/01/13) Paresthesia Plantar fasciitis Urinary incontinence Surgical History B/L Tubal Ligation Colonoscopy - IV Sedation (02/22/12) Ligation of fallopian tube MCL Reconstruction (11/14/13) Exam Const General: no acute distress Nutritional Appearance: overweight Orientation: alert and oriented x3 HENMT Head: normal to inspection Resp Effort & Inspection: normal respiratory effort and able to speak in complete sentences Auscultation: clear to auscultation bilaterally and lung sounds not diminished Cardio Jugular venous pressure: no JVD Rate: regular rate Rhythm: regular rhythm GI Inspection: non-distended Palpation: soft, not firm, no guarding, no masses and nontender Auscultation: hypoactive bowel sounds Skin General skin exam: no rashes or lesions noted and no jaundice Neuro General: alert, awake and oriented x3 Speech: speech normal Results Labs : 07/02/18 19:40 07/02/18 19:40 Abnormal lab results 07/02/18 07/02/18 07/02/18 Range/Units 19:40 19:40 20:24 WBC 24.73 H (4.4-10.8) k/cumm RBC 5.32 H (4.00-5.20) m/cumm Hgb 15.7 H (12.0-15.5) g/dL Hct 47.1 H (36.0-46.0) % Absolute Neutrophils 21.89 H (1.2-6.7) k/cumm Absolute Monocytes 1.09 H (0.11-0.7) k/cumm Anion Gap 12.6 H (3-11) mmol/L Creatinine 1.14 H (0.55-1.02) mg/dL Glucose 126 H (70-100) mg/dL Lactate 2.0 H (0.6-1.4) mmol/L Alkaline Phosphatase 168 H (46-116) U/L Ur Leukocyte Esterase (Negative) 07/02/18 Range/Units 21:23 WBC (4.4-10.8) k/cumm RBC (4.00-5.20) m/cumm Hgb (12.0-15.5) g/dL Hct (36.0-46.0) % Absolute Neutrophils (1.2-6.7) k/cumm Absolute Monocytes (0.11-0.7) k/cumm Anion Gap (3-11) mmol/L Creatinine (0.55-1.02) mg/dL Glucose (70-100) mg/dL Lactate (0.6-1.4) mmol/L Alkaline Phosphatase (46-116) U/L Ur Leukocyte Esterase Small H (Negative) Diabetes panel 07/02/18 Range/Units 19:40 Sodium 140 (136-145) mmol/L Potassium 4.2 (3.5-5.1) mmol/L Chloride 101 (98-107) mmol/L Carbon Dioxide 26.4 (21.0-32.0) mmol/L BUN 13 (7-18) mg/dL Creatinine 1.14 H (0.55-1.02) mg/dL Glucose 126 H (70-100) mg/dL Calcium 9.5 (8.5-10.1) mg/dL AST 18 (15-37) U/L ALT 22 (12-78) U/L Alkaline Phosphatase 168 H (46-116) U/L Total Protein 8.2 (6.4-8.2) g/dL Albumin 3.9 (3.4-5.0) g/dL Thyroid panel 07/02/18 Range/Units 19:40 TSH 1.21 (0.358-3.74) uIU/mL Calcium panel 07/02/18 Range/Units 19:40 Calcium 9.5 (8.5-10.1) mg/dL Albumin 3.9 (3.4-5.0) g/dL Pituitary panel 07/02/18 07/02/18 Range/Units 19:40 19:40 Sodium 140 (136-145) mmol/L Potassium 4.2 (3.5-5.1) mmol/L Chloride 101 (98-107) mmol/L Carbon Dioxide 26.4 (21.0-32.0) mmol/L BUN 13 (7-18) mg/dL Creatinine 1.14 H (0.55-1.02) mg/dL Glucose 126 H (70-100) mg/dL Calcium 9.5 (8.5-10.1) mg/dL TSH 1.21 (0.358-3.74) uIU/mL Adrenal panel 07/02/18 Range/Units 19:40 Sodium 140 (136-145) mmol/L Potassium 4.2 (3.5-5.1) mmol/L Chloride 101 (98-107) mmol/L Carbon Dioxide 26.4 (21.0-32.0) mmol/L BUN 13 (7-18) mg/dL Creatinine 1.14 H (0.55-1.02) mg/dL Glucose 126 H (70-100) mg/dL Calcium 9.5 (8.5-10.1) mg/dL Total Bilirubin 0.7 (0.2-1.0) mg/dL AST 18 (15-37) U/L ALT 22 (12-78) U/L Alkaline Phosphatase 168 H (46-116) U/L Total Protein 8.2 (6.4-8.2) g/dL Albumin 3.9 (3.4-5.0) g/dL Laboratory Tests 07/02/18 07/02/18 07/02/18 19:40 19:40 19:40 WBC 24.73 H RBC 5.32 H Hgb 15.7 H Hct 47.1 H MCV 88.5 MCH 29.5 MCHC 33.3 RDW 14.1 Plt Count 361 MPV 10.6 Immature Gran % 0.3 Neutrophils % 88.5 Lymphocytes % 5.4 Monocytes % 4.4 Eosinophils % 1.2 Basophils % 0.2 Absolute Neutrophils 21.89 H Absolute Lymphocytes 1.34 Absolute Monocytes 1.09 H Absolute Eosinophils 0.30 Absolute Basophils 0.05 Differential Comment Comment Sodium 140 Potassium 4.2 Chloride 101 Carbon Dioxide 26.4 Anion Gap 12.6 H BUN 13 Creatinine 1.14 H Estimated GFR/1.73 m2 48.62 Glucose 126 H Lactate Calcium 9.5 Total Bilirubin 0.7 AST 18 ALT 22 Alkaline Phosphatase 168 H Total Protein 8.2 Albumin 3.9 Lipase 107 TSH Urine Color Urine Clarity Urine pH Ur Specific [place] Urine Protein Urine Ketones Urine Blood Urine Nitrite Urine Bilirubin Urine Urobilinogen Ur Leukocyte Esterase Urine RBC Urine WBC Ur Epithelial Cells Urine Crystals Urine Bacteria Urine Casts Urine Mucus Urine Other Ur Culture Indicated? Urine Glucose 07/02/18 07/02/18 07/02/18 19:40 20:24 21:23 WBC RBC Hgb Hct MCV MCH MCHC RDW Plt Count MPV Immature Gran % Neutrophils % Lymphocytes % Monocytes % Eosinophils % Basophils % Absolute Neutrophils Absolute Lymphocytes Absolute Monocytes Absolute Eosinophils Absolute Basophils Differential Comment Sodium Potassium Chloride Carbon Dioxide Anion Gap BUN Creatinine Estimated GFR/1.73 m2 Glucose Lactate 2.0 H Calcium Total Bilirubin AST ALT Alkaline Phosphatase Total Protein Albumin Lipase TSH 1.21 Urine Color Yellow Urine Clarity Sl cloudy Urine pH 5.0 Ur Specific [place] <= 1.005 Urine Protein Negative Urine Ketones Negative Urine Blood Negative Urine Nitrite Negative Urine Bilirubin Negative Urine Urobilinogen 0.2 Ur Leukocyte Esterase Small H Urine RBC 0-2 Urine WBC 5-10 Ur Epithelial Cells Many Urine Crystals Negative Urine Bacteria Moderate Urine Casts Negative Urine Mucus Negative Urine Other Negative Ur Culture Indicated? No/sq. contamination Urine Glucose Negative Imaging CT scan - chest: report reviewed and image reviewed CT scan - pelvis: report reviewed and image reviewed Imaging Studies: Patient Name: TRI BHAT #: [id number]: ER Ordering Provider: : [facility] ER Primary Care Provider: JOSE LEWIS Date of Exam: 07/02/18ex: F : 8Age: 62 Exam(s) EXAM: CT Abdomen and Pelvis With Intravenous Contrast CLINICAL HISTORY: 62 years old, female; Pain; Other: Rlq; Other: Recent fall, rib pain; Patient HX: Profuse diarrhea, rlq tenderness, lt sided rib pain TECHNIQUE: Axial computed tomography images of the abdomen and pelvis with intravenous contrast. All CT scans at this facility use at least one of these dose optimization techniques: automated exposure control; mA and/or kV adjustment per patient size (includes targeted exams where dose is matched to clinical indication); or iterative reconstruction. This Coronal and sagittal reformatted images were created and reviewed. CONTRAST: 100 mL of OMNIPAQUE 350 administered intravenously. COMPARISON: No relevant prior studies available. FINDINGS: Lung bases: Unremarkable. No mass. No consolidation. ABDOMEN: Liver: Unremarkable. No mass. Gallbladder and bile ducts: Unremarkable. No calcified stones. No ductal dilation. Pancreas: Fatty atrophy of the pancreas is evident. No ductal dilation. Spleen: Unremarkable. No splenomegaly. Adrenals: Unremarkable. No mass. Kidneys and ureters: Unremarkable. No solid mass. No hydronephrosis. Stomach and bowel: There is diffuse fluid throughout the colon with mild mucosal thickening especially involving transverse portion of the colon. No evidence of obstruction. PELVIS: Appendix: No findings to suggest acute appendicitis. Bladder: Unremarkable. No mass. Reproductive: Unremarkable as visualized. ABDOMEN and PELVIS: Intraperitoneal space: Unremarkable. No free air. No significant fluid collection. Bones/joints: No acute fracture. No dislocation. Soft tissues: A fat filled umbilical hernia is noted. Vasculature: Atherosclerosis. No abdominal aortic aneurysm. Lymph nodes: Unremarkable. No enlarged lymph nodes. IMPRESSION: CT findings of the colon suggesting an infectious/inflammatory colitis. EXAM: CT Chest With Intravenous Contrast CLINICAL HISTORY: 62 years old, female; Pain; Other: Rlq; Other: Recent fall, rib pain; Patient HX: Profuse diarrhea, rlq tenderness, lt sided rib pain TECHNIQUE: Axial computed tomography images of the chest with intravenous contrast. All CT scans at this facility use at least one of these dose optimization techniques: automated exposure control; mA and/or kV adjustment per patient size (includes targeted exams where dose is matched to clinical indication); or iterative reconstruction. Coronal and sagittal reformatted images were created and reviewed. CONTRAST: 100 mL of OMNIPAQUE 350 administered intravenously. 100 mL of OMNIPAQUE 350 administered intravenously. COMPARISON: No relevant prior studies available. FINDINGS: Lungs: There is scattered mild scarring and atelectasis in the lungs. No significant consolidation. Minimal centrilobular emphysematous changes are present. Pleural space: Unremarkable. No pneumothorax. No significant effusion. Heart: Unremarkable. No cardiomegaly. No significant pericardial effusion. Mediastinum: There is reflux of fluid into the esophagus. Bones/joints: Left anterolateral seventh and eighth rib fractures are present. No dislocation. Soft tissues: Unremarkable. Vasculature: Unremarkable. No thoracic aortic aneurysm. Lymph nodes: Unremarkable. No enlarged lymph nodes. Tubes, lines and devices: A right central venous catheter is present in the superior vena cava. IMPRESSION: Left seventh and eighth rib fractures. Dictated and Authenticated by: Tobias Matt MD. Ordering:SUZAN NDIAYE MD Ordered By: CC: Dictated By: Eb aguayo 07/02/18 1926 07/02/18 [id number] Transcribed By: DONAL PASCUAL
--- NOTE | 2018-07-02 23:24 | W.MEDCONSULT ---
Date of service: 07/02/18 Time of Service: 23:24 History of Present Illness Chief Complaint: abdominal pain, diarrhea Narrative: 62 year old female, tripped today and landed on belly. Shortly thereafter began having profuse watery diarrhea along with vague lower abdominal pain. In ER was initially eutensive, then BP dropped to 50/systolic, at which time pulse was tachycardic. Initial w/u of note for WBC of 18K, elevated lactate and CT showing pancolitis. Central line placed an patient given 3L IVF with retoration of normotension. EKG unremarkable an Hct 41. Review of Systems Review of Systems All systems reviewed & are unremarkable except as noted in HPI and below PFSH Family History Other Essential hypertension Medical History PTSD (post-traumatic stress disorder) (Chronic) Anxiety disorder Burn Carpal tunnel syndrome Chest pain (05/24/06) Colon polyps GERD (gastroesophageal reflux disease) Hyperlipidemia Hypertension Left knee dislocation (11/01/13) Paresthesia Plantar fasciitis Urinary incontinence Surgical History B/L Tubal Ligation Colonoscopy - IV Sedation (02/22/12) Ligation of fallopian tube MCL Reconstruction (11/14/13) Exam Narrative Exam Narrative: BP 113/60, pulse 92 HEENT unremarkable save for dry oral mucosa Neck supple lungs clear Heart r/r/r w/o m/r/g Abdomen: soft, mild lower abdominal tenderness without rebound rectal deferred Extr: wothout edema, pulses 2+/= Results Labs : 07/02/18 19:40 07/02/18 19:40 Abnormal lab results 07/02/18 07/02/18 07/02/18 Range/Units 19:40 19:40 20:24 WBC 24.73 H (4.4-10.8) k/cumm RBC 5.32 H (4.00-5.20) m/cumm Hgb 15.7 H (12.0-15.5) g/dL Hct 47.1 H (36.0-46.0) % Absolute Neutrophils 21.89 H (1.2-6.7) k/cumm Absolute Monocytes 1.09 H (0.11-0.7) k/cumm Anion Gap 12.6 H (3-11) mmol/L Creatinine 1.14 H (0.55-1.02) mg/dL Glucose 126 H (70-100) mg/dL Lactate 2.0 H (0.6-1.4) mmol/L Alkaline Phosphatase 168 H (46-116) U/L Ur Leukocyte Esterase (Negative) 07/02/18 Range/Units 21:23 WBC (4.4-10.8) k/cumm RBC (4.00-5.20) m/cumm Hgb (12.0-15.5) g/dL Hct (36.0-46.0) % Absolute Neutrophils (1.2-6.7) k/cumm Absolute Monocytes (0.11-0.7) k/cumm Anion Gap (3-11) mmol/L Creatinine (0.55-1.02) mg/dL Glucose (70-100) mg/dL Lactate (0.6-1.4) mmol/L Alkaline Phosphatase (46-116) U/L Ur Leukocyte Esterase Small H (Negative) Diabetes panel 07/02/18 Range/Units 19:40 Sodium 140 (136-145) mmol/L Potassium 4.2 (3.5-5.1) mmol/L Chloride 101 (98-107) mmol/L Carbon Dioxide 26.4 (21.0-32.0) mmol/L BUN 13 (7-18) mg/dL Creatinine 1.14 H (0.55-1.02) mg/dL Glucose 126 H (70-100) mg/dL Calcium 9.5 (8.5-10.1) mg/dL AST 18 (15-37) U/L ALT 22 (12-78) U/L Alkaline Phosphatase 168 H (46-116) U/L Total Protein 8.2 (6.4-8.2) g/dL Albumin 3.9 (3.4-5.0) g/dL Thyroid panel 07/02/18 Range/Units 19:40 TSH 1.21 (0.358-3.74) uIU/mL Calcium panel 07/02/18 Range/Units 19:40 Calcium 9.5 (8.5-10.1) mg/dL Albumin 3.9 (3.4-5.0) g/dL Pituitary panel 07/02/18 07/02/18 Range/Units 19:40 19:40 Sodium 140 (136-145) mmol/L Potassium 4.2 (3.5-5.1) mmol/L Chloride 101 (98-107) mmol/L Carbon Dioxide 26.4 (21.0-32.0) mmol/L BUN 13 (7-18) mg/dL Creatinine 1.14 H (0.55-1.02) mg/dL Glucose 126 H (70-100) mg/dL Calcium 9.5 (8.5-10.1) mg/dL TSH 1.21 (0.358-3.74) uIU/mL Adrenal panel 07/02/18 Range/Units 19:40 Sodium 140 (136-145) mmol/L Potassium 4.2 (3.5-5.1) mmol/L Chloride 101 (98-107) mmol/L Carbon Dioxide 26.4 (21.0-32.0) mmol/L BUN 13 (7-18) mg/dL Creatinine 1.14 H (0.55-1.02) mg/dL Glucose 126 H (70-100) mg/dL Calcium 9.5 (8.5-10.1) mg/dL Total Bilirubin 0.7 (0.2-1.0) mg/dL AST 18 (15-37) U/L ALT 22 (12-78) U/L Alkaline Phosphatase 168 H (46-116) U/L Total Protein 8.2 (6.4-8.2) g/dL Albumin 3.9 (3.4-5.0) g/dL Laboratory Tests 07/02/18 07/02/18 07/02/18 19:40 19:40 19:40 WBC 24.73 H RBC 5.32 H Hgb 15.7 H Hct 47.1 H MCV 88.5 MCH 29.5 MCHC 33.3 RDW 14.1 Plt Count 361 MPV 10.6 Immature Gran % 0.3 Neutrophils % 88.5 Lymphocytes % 5.4 Monocytes % 4.4 Eosinophils % 1.2 Basophils % 0.2 Absolute Neutrophils 21.89 H Absolute Lymphocytes 1.34 Absolute Monocytes 1.09 H Absolute Eosinophils 0.30 Absolute Basophils 0.05 Differential Comment Comment Sodium 140 Potassium 4.2 Chloride 101 Carbon Dioxide 26.4 Anion Gap 12.6 H BUN 13 Creatinine 1.14 H Estimated GFR/1.73 m2 48.62 Glucose 126 H Lactate Calcium 9.5 Total Bilirubin 0.7 AST 18 ALT 22 Alkaline Phosphatase 168 H Total Protein 8.2 Albumin 3.9 Lipase 107 TSH Urine Color Urine Clarity Urine pH Ur Specific [place] Urine Protein Urine Ketones Urine Blood Urine Nitrite Urine Bilirubin Urine Urobilinogen Ur Leukocyte Esterase Urine RBC Urine WBC Ur Epithelial Cells Urine Crystals Urine Bacteria Urine Casts Urine Mucus Urine Other Ur Culture Indicated? Urine Glucose Patient ABO/Rh Antibody Screen 07/02/18 07/02/18 07/02/18 19:40 19:50 20:24 WBC RBC Hgb Hct MCV MCH MCHC RDW Plt Count MPV Immature Gran % Neutrophils % Lymphocytes % Monocytes % Eosinophils % Basophils % Absolute Neutrophils Absolute Lymphocytes Absolute Monocytes Absolute Eosinophils Absolute Basophils Differential Comment Sodium Potassium Chloride Carbon Dioxide Anion Gap BUN Creatinine Estimated GFR/1.73 m2 Glucose Lactate 2.0 H Calcium Total Bilirubin AST ALT Alkaline Phosphatase Total Protein Albumin Lipase TSH 1.21 Urine Color Urine Clarity Urine pH Ur Specific [place] Urine Protein Urine Ketones Urine Blood Urine Nitrite Urine Bilirubin Urine Urobilinogen Ur Leukocyte Esterase Urine RBC Urine WBC Ur Epithelial Cells Urine Crystals Urine Bacteria Urine Casts Urine Mucus Urine Other Ur Culture Indicated? Urine Glucose Patient ABO/Rh O Negative Antibody Screen Negative 07/02/18 21:23 WBC RBC Hgb Hct MCV MCH MCHC RDW Plt Count MPV Immature Gran % Neutrophils % Lymphocytes % Monocytes % Eosinophils % Basophils % Absolute Neutrophils Absolute Lymphocytes Absolute Monocytes Absolute Eosinophils Absolute Basophils Differential Comment Sodium Potassium Chloride Carbon Dioxide Anion Gap BUN Creatinine Estimated GFR/1.73 m2 Glucose Lactate Calcium Total Bilirubin AST ALT Alkaline Phosphatase Total Protein Albumin Lipase TSH Urine Color Yellow Urine Clarity Sl cloudy Urine pH 5.0 Ur Specific [place] <= 1.005 Urine Protein Negative Urine Ketones Negative Urine Blood Negative Urine Nitrite Negative Urine Bilirubin Negative Urine Urobilinogen 0.2 Ur Leukocyte Esterase Small H Urine RBC 0-2 Urine WBC 5-10 Ur Epithelial Cells Many Urine Crystals Negative Urine Bacteria Moderate Urine Casts Negative Urine Mucus Negative Urine Other Negative Ur Culture Indicated? No/sq. contamination Urine Glucose Negative Patient ABO/Rh Antibody Screen Assessment and Plan (1) Colitis: Current visit: Yes Status: Acute The hypotension is the most striking and concerning aspect of the case. There is no evidence of cardiogenic or hemorrhagic shock. There is likely an element of hypovolemia, though it is concerning that the hypotension manifested suddenly and progressively after she arrived, which would not be expected if the entire issue was hypovolemia. By exclusion I think septic shock is the most coherent diagnosis here, further supported by the elevated lactate and significant leukocytosis. Assuming in any case an infectious etiology, the CT would clearly point to colitis. Cdiff scren is negative, so one otherwise considers various stool pathogens. Of course there always is the possibility of a non-infectious etiology here (viz, inflammatory bowel disease, though there is no history of such. I think patient requires close monitoring in ICU for further workup and management. There is no bed availability and I will recommend transfer from ER to another facility.
[2018-07-02 23:39] LABS: Lactate-non-spesis 0.6 mmol/L (0.6-1.4)
[2018-07-03] VITALS (18 sets, daily range): BP systolic 79–104; BP diastolic 54–84; PULSE 86–103; RESP 17–23; TEMP 37; O2SAT 94–95
[2018-07-03] MEDS: Normal Saline 1,000 ML 150 ML IV (01:15)
--- NOTE | 2018-07-03 12:11 | W.PM.HP.N ---
Assessment and Plan (1) Colitis: Current visit: No Status: Acute (2) Left rib fracture: Current visit: No Status: Acute PFSH Family History Other Essential hypertension Medical History PTSD (post-traumatic stress disorder) (Chronic) Anxiety disorder Burn Carpal tunnel syndrome Chest pain (05/24/06) Colon polyps GERD (gastroesophageal reflux disease) Hyperlipidemia Hypertension Left knee dislocation (11/01/13) Paresthesia Plantar fasciitis Urinary incontinence Surgical History B/L Tubal Ligation Colonoscopy - IV Sedation (02/22/12) Ligation of fallopian tube MCL Reconstruction (11/14/13) Meds Home Medications Medication Instructions Recorded Confirmed Type albuterol sulfate [Proventil Hfa] 2 puff INHALATION Q4H PRN inhaler 03/08/16 07/02/18 History NS amitriptyline 25 mg PO HS tab-cap NS 03/08/16 07/02/18 History aspirin [Low Dose Aspirin Ec] 81 mg PO DAILY tab-cap NS 03/08/16 07/02/18 History cetirizine [Zyrtec] 10 mg PO DAILY NS 03/08/16 07/02/18 History enalapril maleate 5 mg PO DAILY tab-cap NS 03/08/16 07/02/18 History fluoxetine [Prozac] 80 mg PO DAILY tab-cap NS 03/08/16 07/02/18 History fluticasone [Flonase Allergy 9.9 ml NS NS 03/08/16 History Relief] hydromorphone [Dilaudid] 4 mg PO Q4H PRN tab-cap NS 03/08/16 07/02/18 History naproxen 500 mg PO DAILY tab-cap NS 03/08/16 07/02/18 History nystatin (bulk) 1 ea TOPICAL BID NS 03/08/16 History oxybutynin chloride 10 mg PO DAILY tab-cap NS 03/08/16 07/02/18 History ranitidine HCl 150 mg PO BID tab-cap NS 03/08/16 07/02/18 History simvastatin 40 mg PO DAILY tab-cap NS 03/08/16 07/02/18 History Allergies Allergy/AdvReac Type Severity Reaction Status Date / Time diclofenac sodium Allergy Severe Unverified 07/02/18 20:29 [From [facility]] sodium sulfate Allergy Severe Unverified 07/02/18 20:29 chlorthalidone Allergy Mild Unverified 07/02/18 20:29 Exam Narrative Exam Narrative: Selected Entries 07/03/18 01:05 Blood Pressure 96/62 L Last Vital Signs Temp 37.0 C 07/03/18 01:05 Pulse 88 07/03/18 01:05 Resp 21 07/03/18 01:05 BP 96/62 L 07/03/18 01:05 Pulse Ox 95 07/03/18 01:05 Results Labs : 07/02/18 19:40 07/02/18 19:40 Abnormal lab results 07/02/18 07/02/18 07/02/18 Range/Units 19:40 19:40 20:24 WBC 24.73 H (4.4-10.8) k/cumm RBC 5.32 H (4.00-5.20) m/cumm Hgb 15.7 H (12.0-15.5) g/dL Hct 47.1 H (36.0-46.0) % Absolute Neutrophils 21.89 H (1.2-6.7) k/cumm Absolute Monocytes 1.09 H (0.11-0.7) k/cumm Anion Gap 12.6 H (3-11) mmol/L Creatinine 1.14 H (0.55-1.02) mg/dL Glucose 126 H (70-100) mg/dL Lactate 2.0 H (0.6-1.4) mmol/L Alkaline Phosphatase 168 H (46-116) U/L Ur Leukocyte Esterase (Negative) 07/02/18 Range/Units 21:23 WBC (4.4-10.8) k/cumm RBC (4.00-5.20) m/cumm Hgb (12.0-15.5) g/dL Hct (36.0-46.0) % Absolute Neutrophils (1.2-6.7) k/cumm Absolute Monocytes (0.11-0.7) k/cumm Anion Gap (3-11) mmol/L Creatinine (0.55-1.02) mg/dL Glucose (70-100) mg/dL Lactate (0.6-1.4) mmol/L Alkaline Phosphatase (46-116) U/L Ur Leukocyte Esterase Small H (Negative) Diabetes panel 07/02/18 Range/Units 19:40 Sodium 140 (136-145) mmol/L Potassium 4.2 (3.5-5.1) mmol/L Chloride 101 (98-107) mmol/L Carbon Dioxide 26.4 (21.0-32.0) mmol/L BUN 13 (7-18) mg/dL Creatinine 1.14 H (0.55-1.02) mg/dL Glucose 126 H (70-100) mg/dL Calcium 9.5 (8.5-10.1) mg/dL AST 18 (15-37) U/L ALT 22 (12-78) U/L Alkaline Phosphatase 168 H (46-116) U/L Total Protein 8.2 (6.4-8.2) g/dL Albumin 3.9 (3.4-5.0) g/dL Thyroid panel 07/02/18 Range/Units 19:40 TSH 1.21 (0.358-3.74) uIU/mL Calcium panel 07/02/18 Range/Units 19:40 Calcium 9.5 (8.5-10.1) mg/dL Albumin 3.9 (3.4-5.0) g/dL Pituitary panel 07/02/18 07/02/18 Range/Units 19:40 19:40 Sodium 140 (136-145) mmol/L Potassium 4.2 (3.5-5.1) mmol/L Chloride 101 (98-107) mmol/L Carbon Dioxide 26.4 (21.0-32.0) mmol/L BUN 13 (7-18) mg/dL Creatinine 1.14 H (0.55-1.02) mg/dL Glucose 126 H (70-100) mg/dL Calcium 9.5 (8.5-10.1) mg/dL TSH 1.21 (0.358-3.74) uIU/mL Adrenal panel 07/02/18 Range/Units 19:40 Sodium 140 (136-145) mmol/L Potassium 4.2 (3.5-5.1) mmol/L Chloride 101 (98-107) mmol/L Carbon Dioxide 26.4 (21.0-32.0) mmol/L BUN 13 (7-18) mg/dL Creatinine 1.14 H (0.55-1.02) mg/dL Glucose 126 H (70-100) mg/dL Calcium 9.5 (8.5-10.1) mg/dL Total Bilirubin 0.7 (0.2-1.0) mg/dL AST 18 (15-37) U/L ALT 22 (12-78) U/L Alkaline Phosphatase 168 H (46-116) U/L Total Protein 8.2 (6.4-8.2) g/dL Albumin 3.9 (3.4-5.0) g/dL Laboratory Tests 07/02/18 07/02/18 07/02/18 19:40 19:40 19:40 WBC 24.73 H RBC 5.32 H Hgb 15.7 H Hct 47.1 H MCV 88.5 MCH 29.5 MCHC 33.3 RDW 14.1 Plt Count 361 MPV 10.6 Immature Gran % 0.3 Neutrophils % 88.5 Lymphocytes % 5.4 Monocytes % 4.4 Eosinophils % 1.2 Basophils % 0.2 Absolute Neutrophils 21.89 H Absolute Lymphocytes 1.34 Absolute Monocytes 1.09 H Absolute Eosinophils 0.30 Absolute Basophils 0.05 Differential Comment Comment Sodium 140 Potassium 4.2 Chloride 101 Carbon Dioxide 26.4 Anion Gap 12.6 H BUN 13 Creatinine 1.14 H Estimated GFR/1.73 m2 48.62 Glucose 126 H Lactate Calcium 9.5 Total Bilirubin 0.7 AST 18 ALT 22 Alkaline Phosphatase 168 H Total Protein 8.2 Albumin 3.9 Lipase 107 TSH Urine Color Urine Clarity Urine pH Ur Specific [place] Urine Protein Urine Ketones Urine Blood Urine Nitrite Urine Bilirubin Urine Urobilinogen Ur Leukocyte Esterase Urine RBC Urine WBC Ur Epithelial Cells Urine Crystals Urine Bacteria Urine Casts Urine Mucus Urine Other Ur Culture Indicated? Urine Glucose Patient ABO/Rh Antibody Screen 07/02/18 07/02/18 07/02/18 19:40 19:50 20:24 WBC RBC Hgb Hct MCV MCH MCHC RDW Plt Count MPV Immature Gran % Neutrophils % Lymphocytes % Monocytes % Eosinophils % Basophils % Absolute Neutrophils Absolute Lymphocytes Absolute Monocytes Absolute Eosinophils Absolute Basophils Differential Comment Sodium Potassium Chloride Carbon Dioxide Anion Gap BUN Creatinine Estimated GFR/1.73 m2 Glucose Lactate 2.0 H Calcium Total Bilirubin AST ALT Alkaline Phosphatase Total Protein Albumin Lipase TSH 1.21 Urine Color Urine Clarity Urine pH Ur Specific [place] Urine Protein Urine Ketones Urine Blood Urine Nitrite Urine Bilirubin Urine Urobilinogen Ur Leukocyte Esterase Urine RBC Urine WBC Ur Epithelial Cells Urine Crystals Urine Bacteria Urine Casts Urine Mucus Urine Other Ur Culture Indicated? Urine Glucose Patient ABO/Rh O Negative Antibody Screen Negative 07/02/18 07/02/18 21:23 23:35 WBC RBC Hgb Hct MCV MCH MCHC RDW Plt Count MPV Immature Gran % Neutrophils % Lymphocytes % Monocytes % Eosinophils % Basophils % Absolute Neutrophils Absolute Lymphocytes Absolute Monocytes Absolute Eosinophils Absolute Basophils Differential Comment Sodium Potassium Chloride Carbon Dioxide Anion Gap BUN Creatinine Estimated GFR/1.73 m2 Glucose Lactate 0.6 Calcium Total Bilirubin AST ALT Alkaline Phosphatase Total Protein Albumin Lipase TSH Urine Color Yellow Urine Clarity Sl cloudy Urine pH 5.0 Ur Specific [place] <= 1.005 Urine Protein Negative Urine Ketones Negative Urine Blood Negative Urine Nitrite Negative Urine Bilirubin Negative Urine Urobilinogen 0.2 Ur Leukocyte Esterase Small H Urine RBC 0-2 Urine WBC 5-10 Ur Epithelial Cells Many Urine Crystals Negative Urine Bacteria Moderate Urine Casts Negative Urine Mucus Negative Urine Other Negative Ur Culture Indicated? No/sq. contamination Urine Glucose Negative Patient ABO/Rh Antibody Screen
--- NOTE | 2018-07-03 14:28 | W.PM.HP.N ---
PFSH Family History Other Essential hypertension Medical History PTSD (post-traumatic stress disorder) (Chronic) Anxiety disorder Burn Carpal tunnel syndrome Chest pain (05/24/06) Colon polyps GERD (gastroesophageal reflux disease) Hyperlipidemia Hypertension Left knee dislocation (11/01/13) Paresthesia Plantar fasciitis Urinary incontinence Surgical History B/L Tubal Ligation Colonoscopy - IV Sedation (02/22/12) Ligation of fallopian tube MCL Reconstruction (11/14/13) Meds Home Medications Medication Instructions Recorded Confirmed Type albuterol sulfate [Proventil Hfa] 2 puff INHALATION Q4H PRN inhaler 03/08/16 07/02/18 History NS amitriptyline 25 mg PO HS tab-cap NS 03/08/16 07/02/18 History aspirin [Low Dose Aspirin Ec] 81 mg PO DAILY tab-cap NS 03/08/16 07/02/18 History cetirizine [Zyrtec] 10 mg PO DAILY NS 03/08/16 07/02/18 History enalapril maleate 5 mg PO DAILY tab-cap NS 03/08/16 07/02/18 History fluoxetine [Prozac] 80 mg PO DAILY tab-cap NS 03/08/16 07/02/18 History fluticasone [Flonase Allergy 9.9 ml NS NS 03/08/16 History Relief] hydromorphone [Dilaudid] 4 mg PO Q4H PRN tab-cap NS 03/08/16 07/02/18 History naproxen 500 mg PO DAILY tab-cap NS 03/08/16 07/02/18 History nystatin (bulk) 1 ea TOPICAL BID NS 03/08/16 History oxybutynin chloride 10 mg PO DAILY tab-cap NS 03/08/16 07/02/18 History ranitidine HCl 150 mg PO BID tab-cap NS 03/08/16 07/02/18 History simvastatin 40 mg PO DAILY tab-cap NS 03/08/16 07/02/18 History Allergies Allergy/AdvReac Type Severity Reaction Status Date / Time diclofenac sodium Allergy Severe Unverified 07/02/18 20:29 [From [facility]] sodium sulfate Allergy Severe Unverified 07/02/18 20:29 chlorthalidone Allergy Mild Unverified 07/02/18 20:29 Results Labs : 07/02/18 19:40 07/02/18 19:40 Laboratory Results - last 24 hr 07/02/18 07/02/18 07/02/18 19:40 19:40 19:40 WBC 24.73 H RBC 5.32 H Hgb 15.7 H Hct 47.1 H MCV 88.5 MCH 29.5 MCHC 33.3 RDW 14.1 Plt Count 361 MPV 10.6 Immature Gran % 0.3 Neutrophils % 88.5 Lymphocytes % 5.4 Monocytes % 4.4 Eosinophils % 1.2 Basophils % 0.2 Absolute Neutrophils 21.89 H Absolute Lymphocytes 1.34 Absolute Monocytes 1.09 H Absolute Eosinophils 0.30 Absolute Basophils 0.05 Differential Comment Comment Sodium 140 Potassium 4.2 Chloride 101 Carbon Dioxide 26.4 Anion Gap 12.6 H BUN 13 Creatinine 1.14 H Estimated GFR/1.73 m2 48.62 Glucose 126 H Lactate Calcium 9.5 Total Bilirubin 0.7 AST 18 ALT 22 Alkaline Phosphatase 168 H Total Protein 8.2 Albumin 3.9 Lipase 107 TSH Urine Color Urine Clarity Urine pH Ur Specific [place] Urine Protein Urine Ketones Urine Blood Urine Nitrite Urine Bilirubin Urine Urobilinogen Ur Leukocyte Esterase Urine RBC Urine WBC Ur Epithelial Cells Urine Crystals Urine Bacteria Urine Casts Urine Mucus Urine Other Ur Culture Indicated? Urine Glucose Patient ABO/Rh Antibody Screen 07/02/18 07/02/18 07/02/18 19:40 19:50 20:24 WBC RBC Hgb Hct MCV MCH MCHC RDW Plt Count MPV Immature Gran % Neutrophils % Lymphocytes % Monocytes % Eosinophils % Basophils % Absolute Neutrophils Absolute Lymphocytes Absolute Monocytes Absolute Eosinophils Absolute Basophils Differential Comment Sodium Potassium Chloride Carbon Dioxide Anion Gap BUN Creatinine Estimated GFR/1.73 m2 Glucose Lactate 2.0 H Calcium Total Bilirubin AST ALT Alkaline Phosphatase Total Protein Albumin Lipase TSH 1.21 Urine Color Urine Clarity Urine pH Ur Specific [place] Urine Protein Urine Ketones Urine Blood Urine Nitrite Urine Bilirubin Urine Urobilinogen Ur Leukocyte Esterase Urine RBC Urine WBC Ur Epithelial Cells Urine Crystals Urine Bacteria Urine Casts Urine Mucus Urine Other Ur Culture Indicated? Urine Glucose Patient ABO/Rh O Negative Antibody Screen Negative 07/02/18 07/02/18 21:23 23:35 WBC RBC Hgb Hct MCV MCH MCHC RDW Plt Count MPV Immature Gran % Neutrophils % Lymphocytes % Monocytes % Eosinophils % Basophils % Absolute Neutrophils Absolute Lymphocytes Absolute Monocytes Absolute Eosinophils Absolute Basophils Differential Comment Sodium Potassium Chloride Carbon Dioxide Anion Gap BUN Creatinine Estimated GFR/1.73 m2 Glucose Lactate 0.6 Calcium Total Bilirubin AST ALT Alkaline Phosphatase Total Protein Albumin Lipase TSH Urine Color Yellow Urine Clarity Sl cloudy Urine pH 5.0 Ur Specific [place] <= 1.005 Urine Protein Negative Urine Ketones Negative Urine Blood Negative Urine Nitrite Negative Urine Bilirubin Negative Urine Urobilinogen 0.2 Ur Leukocyte Esterase Small H Urine RBC 0-2 Urine WBC 5-10 Ur Epithelial Cells Many Urine Crystals Negative Urine Bacteria Moderate Urine Casts Negative Urine Mucus Negative Urine Other Negative Ur Culture Indicated? No/sq. contamination Urine Glucose Negative Patient ABO/Rh Antibody Screen
== END 2018-07-03 01:20 | disposition short-term general hospital (02) ==
PROVIDERS: Student in an Organized Health Care Education/Training Program; Emergency Provider Emergency Medicine; PCP Family Medicine
DX: A04.9 Bacterial intestinal infection, unspecified (principal); R65.20 Severe sepsis without septic shock; E86.0 Dehydration; R10.823 Right lower quadrant rebound abdominal tenderness; S22.42XA Multiple fractures of ribs, left side, initial encounter for closed fracture; W01.198A Fall on same level from slipping, tripping and stumbling with subsequent striking against other object, initial encounter; I10 Essential (primary) hypertension
CPT/HCPCS: 36415; 74177; 77001; 80053; 83690; 86850; 86900; 86901; 87040; 87329; 93005; 96361; 96365; 96366; 96367; 96375; 99222; 99253; 99254; 99283; 99291; 36010; 71260; 81003; 81015; 83605; 84443; 85025; 87324; 93010; J2405; J2543; J3490

== ENCOUNTER 2020-10-21 17:08 | Emergency (ER) | payer MEDICAID, SELFPAY ==
[2020-10-21 17:16] VITALS: BP 185/89; PULSE 68; TEMP 36.4; O2SAT 97
--- NOTE | 2020-10-21 17:45 | DI.CT_ITS ---
EXAM: CT HEAD CERVICAL SPINE WO COMPARISON: No exams were available for comparison FINDINGS: CT examination of the cervical spine was performed without contrast administration. There are mild degenerative changes cervical. There is no evidence of acute cervical spine fracture or dislocation. Intervertebral disc spaces are well maintained. Tracheolaryngeal structures appear intact. No cervical mass or adenopathy. There is 1.5 cm in diamet er left thyroid lobe inferior pole nodule, thyroid ultrasound recommended. Noncontrast cranial CT was performed. Ventricular system is normal in appearance. No evidence of acute intracranial hemorrhage, mass effect, or midline shift. No calvarial fracture. The orbital and temporal bone structures appear intact. Visualized mastoid air cells and paranasal sinuses appear clear except for left frontal cysts sinus p olyp versus retention cyst.. IMPRESSION: No evidence of acute cervical spine injury. Thyroid ultrasound recommended to evaluate indeterminate left lobe thyroid nodule. No evidence of acute intracranial injury. RADIATION DOSE DELIVERED: 1,430.59mGy.cm Total DLP 1,430.59mGy.cm Total DLP DATA REPOSITORY: All CT scans at this facility are submitted to the National Radiology Data Registry (NRDR) Dose Index Registry (DIR) with the [employer] ([employer]). RADIATION OPTIMIZATION: All CT scans at this facility use at least one of these dose optimization te chniques: automated exposure control; mA and/or kV adjustment per patient size (includes targeted exa ms where dose is matched to clinical indication); or iterative reconstruction.
--- NOTE | 2020-10-21 17:50 | ED.GENADUL_ITS ---
Discharge Plan Disposition Patient Disposition: HOME Condition: Stable Discharge Details Clinical Impression: Laceration of scalp, Head injury, closed, without LOC Primary Care Provider: JOSE LEWIS ED Provider: Andreea Lester Home Meds and New Rx's Prescriptions: No Action fluoxetine [Prozac] 40 MG capsule 80 mg PO DAILY RF: 0 simvastatin 40 MG tablet 40 mg PO DAILY RF: 0 amitriptyline 25 MG tablet 25 mg PO HS RF: 0 oxybutynin chloride 5 MG tablet extended release 24hr 10 mg PO DAILY RF: 0 albuterol sulfate [Proventil HFA] 6.7 GM HFA aerosol inhaler 2 puff Inhalation Q4H PRN RF: 0 fluticasone propionate [Flonase Allergy Relief] 9.9 ML spray,suspension 9.9 ml NS RF: 0 naproxen 500 MG tablet 500 mg PO BID RF: 0 nystatin (bulk) 1 EACH powder 1 ea Topical BID RF: 0 Zyrtec 10 MG capsule 10 mg PO DAILY RF: 0 enalapril maleate 5 MG tablet 5 mg PO DAILY RF: 0 gabapentin 300 mg capsule 300 mg PO TID RF: 0 omeprazole 20 mg capsule,delayed release(DR/EC) 20 mg PO DAILY RF: 0 Discharge Instructions Instructions: Laceration (ED), Head Injury (ED), Staple Care (ED) Additional Instructions: Take Tylenol as needed and directed for pain. Wash the area gently with soap and water. Do not cover with Band-Aid. Follow-up with your primary care doctor or return to the emergency department in 7 to 10 days for staple removal. Return immediately to the emergency department if you develop any worsening or n ew concerning symptoms such as persistent headaches, vomiting, dizziness or any other concerns. Discharge Data Discharge Date/Time-TO BE ENTERED AT DEPARTURE: 10/21/20 20:15 Discharge Physician: Anrdeea Lester Medical Decision Making 64yo F w/ a h/o anxiety, gerd, htn, hld, ptsd presents for scalp laceration after she slipped and fell while hanging dishes on a wall striking her head on a [place] cabinet. Pt has a 1cm straight laceration R inferior occipital region with surrounding hematoma, bleeding controlled. No palpable skull fracture. No midline spine tenderness. No focal deficits. Patient referred for CT head and cervical spine considering age and hematoma. Imaging reviewed and negative. Wound irrigated well and closed with 2 [place]. Advised to follow up with the primary care doctor or return to the emergency department for staple removal. Usual and customary return precautions given prior to discharge. Medical Records Medical records reviewed: Yes I reviewed the patient's medical records. Imaging Data Radiologic Study: Radiologist's impression: CT Head Without Contrast Exam date and time: 10/21/2020 6:18 PM Age: 64 years old Clinical indication: Hit back of head on on [place] cabinet, R/O skull FX, neck FX TECHNIQUE: Imaging protocol: Computed tomography of the head without contrast. COMPARISON: No relevant prior studies available. FINDINGS: Brain: Age-related involutional changes and chronic microvascular ischemic disease. No evidence for acute transcortical infarct. No mass effect or midline shift. No extra-axial collection. No acute intracranial hemorrhage. Basal cisterns are patent. Cerebral ventricles: No ventriculomegaly. Bones/joints: No acute calvarial fracture. Paranasal sinuses: Visualized sinuses are unremarkable. No fluid levels. Mastoid air cells: Visualized mastoid air cells are well aerated. Soft tissues: Right suboccipital scalp hematoma. No radiopaque foreign body. IMPRESSION: 1. Right suboccipital scalp hematoma. No radiopaque foreign body. No acute calvarial fracture. 2. No evidence for acute transcortical infarct, acute intracranial hemorrhage, or mass effect. CT Cervical Spine Without Contrast Exam date and time: 10/21/2020 6:18 PM Age: 64 years old Clinical indication: Hit back of head on on [place] cabinet, R/O skull FX, neck FX TECHNIQUE: Imaging protocol: Computed tomography images of the cervical spine without contrast. Radiation optimization: All CT scans at this facility use at least one of these dose optimization techniques: automated exposure control; mA and/or kV adjustment per patient size (includes targeted exams where dose is matched to clinical indication); or iterative reconstruction. COMPARISON: No relevant prior studies available. FINDINGS: Bones/joints: No acute fracture or traumatic subluxation. No spondylolisthesis. The atlantooccipital and atlantoaxial articulations are intact. Occipital condyles are intact. Facet joint alignments are maintained. Discs/Spinal canal/Neural foramina: Age-related degenerative disc disease. Multilevel degenerative changes of the cervical spine. Prevertebral Space: No prevertebral soft tissue swelling. Thyroid: Left inferior thyroid 1 cm hypodense nodule. Lungs: Lung apices are normal. Soft tissues: Unremarkable. IMPRESSION: 1. No acute fracture or traumatic subluxation. 2. Left inferior thyroid 1 cm hypodense nodule. HPI General Mode of arrival: ambulatory . Date/Time Provider Initiated Documentation: 10/21/20 17:08 . Limitations to Documentation: no limitations . Information obtained by: patient . HPI Narrative: Pt is a 64yo F who presents to the ED w/ a c/o head injury after slipping and falling while hanging plates on a wall striking her head on a [place] cabinet today. Patient states she was stepping on a chair when she slipped and fell and hit the right back of her head on the edge of a [place] cabinet. She admits to some pain in the area but denies any diffuse headache, loss of consciousness, vomiting, blurry vision, dizziness, neck pain or other injuries. She is unsure of her tetanus status. Related Data Home Medications Medication Instructions Recorded Confirmed albuterol sulfate [Proventil Hfa] 2 puff INHALATION Q4H PRN inhaler 03/08/16 10/21/20 NS amitriptyline 25 mg PO HS tab-cap NS 03/08/16 10/21/20 cetirizine [Zyrtec] 10 mg PO DAILY NS 03/08/16 10/21/20 enalapril maleate 5 mg PO DAILY tab-cap NS 03/08/16 10/21/20 fluoxetine [Prozac] 80 mg PO DAILY tab-cap NS 03/08/16 10/21/20 fluticasone propionate [Flonase 9.9 ml NS NS 03/08/16 Allergy Relief] naproxen 500 mg PO BID tab-cap NS 03/08/16 10/21/20 nystatin (bulk) 1 ea TOPICAL BID NS 03/08/16 10/21/20 oxybutynin chloride 10 mg PO DAILY tab-cap NS 03/08/16 10/21/20 simvastatin 40 mg PO DAILY tab-cap NS 03/08/16 10/21/20 gabapentin 300 mg PO TID 10/21/20 10/21/20 omeprazole 20 mg PO DAILY 10/21/20 10/21/20 Allergies Allergy/AdvReac Type Severity Reaction Status Date / Time diclofenac sodium Allergy Severe Unverified 10/21/20 17:22 [From Voltaren] sodium sulfate Allergy Severe Unverified 10/21/20 17:22 chlorthalidone Allergy Mild Unverified 10/21/20 17:22 General Stated Complaint: HeadInjury WILLIE: 3 Review of Systems All systems reviewed & are unremarkable except as noted in HPI and below Constitutional Constitutional: Reports as per HPI, Denies chills, Denies fever(s) and Reports headache(s) Eyes Eyes: Denies blurry vision ENT Ears, Nose, Mouth, and Throat: Denies dizziness, Reports headache(s), Denies sore throat and Denies throat swelling Cardiovascular Cardiovascular: Denies chest pain and Denies dyspnea Respiratory Respiratory: Denies cough and Denies dyspnea Gastrointestinal Gastrointestinal: Denies abdominal pain, Denies diarrhea and Denies vomiting Genitourinary Genitourinary: Denies hematuria and Denies dysuria Musculoskeletal Musculoskeletal: Denies back pain and Denies numbness Integumentary/Breasts Skin/Breast: Denies lesions and Denies rash Neurologic Neurologic: Denies dizziness, Reports headache(s), Denies localized weakness and Denies numbness Allergic/Immunologic Allergic/Immunologic: Denies throat swelling [facility] Medical History (Updated 10/21/20 @ 19:30 by Andreea Lester DO) Anxiety disorder Burn ? Cellulitis R hallux Carpal tunnel syndrome Chest pain (05/24/06) [id number] Colon polyps GERD (gastroesophageal reflux disease) Hyperlipidemia Hypertension Left knee dislocation (11/01/13) Torn Tendons. Now w/ chronic pain and instability. Paresthesia Plantar fasciitis PTSD (post-traumatic stress disorder) Urinary incontinence Surgical History (Updated 08/09/18 @ 14:35 by Fullbridge ND) B/L Tubal Ligation Colonoscopy - IV Sedation (02/22/12) 5 Sigmoid Polyps Ligation of fallopian tube MCL Reconstruction (11/14/13) From LT Knee Dislocation Family History Other Essential hypertension Social History (Updated 07/02/18 @ 22:41 by Kris Long MD) Smoking/Tobacco Use Status: Former Tobacco Use Smoking risk assessment performed?: Yes Alcohol Intake: never Drug use: Occasionally Substance use type: does not use Do you feel safe at home: Yes Do you feel safe in your relationship?: Yes Additional Social history: denies current smoking or ETOH use Exam Const General: cooperative, healthy appearing and no acute distress HENND Head: no palpable skull fracture Head images: 1. 1 cm straight tender laceration with a 2 x 2 centimeter area of edema consistent with hematoma surrounding laceration. Ears: hearing grossly normal bilaterally, external ears normal and TM's normal bilaterally General nose exam: external nose normal Mouth: oral mucosae normal Eyes General: appearance normal, both eyes and all related structures Neck Neck: normal visual inspection, full ROM, no meningeal signs, trachea midline and supple Resp Effort & Inspection: normal respiratory effort and able to speak in complete sentences Cardio Rate: regular rate Back/Spine/Pelvis Cervical Spine: No cervical spinal tenderness Skin General skin exam: no rashes or lesions noted Neuro General: patient alert, patient awake, patient oriented x3, moves all extremities, no meningeal signs and no focal motor deficits Motor: muscle tone normal throughout and strength 5/5 throughout Extrem General: normal to inspection and full ROM Psych Appearance: grossly normal Affect: normal affect Course Vital Signs Vital signs: Vital Signs Temperature 97.5 F L 10/21/20 17:16 Pulse 68 10/21/20 17:16 Blood Pressure 185/89 H 10/21/20 17:16 Pulse Oximetry 97 10/21/20 17:16 Temperature 97.5 F L 10/21/20 17:16 Temperature Source Temporal Artery Scan 10/21/20 17:16 Pulse 68 10/21/20 17:16 Respiratory Effort Non-Labored 10/21/20 17:16 Blood Pressure 185/89 H 10/21/20 17:16 Blood Pressure Position Sitting 10/21/20 17:16 Pulse Oximetry 97 10/21/20 17:16 Oxygen Delivery Method Room Air 10/21/20 17:16 Oxygen Flow Rate 0 10/21/20 17:16 Pain Level 8 10/21/20 17:16 Procedures Laceration Laceration 1: Site: scalp Side (If applicable): right Size (cm): 1 Description: linear Depth: simple, single layer Local Anesthetic: other anesthetic (topical LET) Pre-repair: wound explored, irrigated extensively and deep structures intact Skin layer closed with: other (staple) Number of sutures: 2 Technique: simple, interrupted
[2020-10-21] MEDS: Acetaminophen 325 MG TAB 650 MG PO (18:04)
--- NOTE | 2020-10-21 18:44 | DI.VRAD_ITS ---
PROCEDURE INFORMATION: Exam: CT Head Without Contrast Exam date and time: 10/21/2020 6:18 PM Age: 64 years old Clinical indication: Hit back of head on on [place] cabinet, R/O skull FX, neck FX TECHNIQUE: Imaging protocol: Computed tomography of the head without contrast. COMPARISON: No relevant prior studies available. FINDINGS: Brain: Age-related involutional changes and chronic microvascular ischemic disease. No evidence for acute transcortical infarct. No mass effect or midline shift. No extra-axial collection. No acute intracranial hemorrhage. Basal cisterns are patent. Cerebral ventricles: No ventriculomegaly. Bones/joints: No acute calvarial fracture. Paranasal sinuses: Visualized sinuses are unremarkable. No fluid levels. Mastoid air cells: Visualized mastoid air cells are well aerated. Soft tissues: Right suboccipital scalp hematoma. No radiopaque foreign body. IMPRESSION: 1. Right suboccipital scalp hematoma. No radiopaque foreign body. No acute calvarial fracture. 2. No evidence for acute transcortical infarct, acute intracranial hemorrhage, or mass effect. PROCEDURE INFORMATION: Exam: CT Cervical Spine Without Contrast Exam date and time: 10/21/2020 6:18 PM Age: 64 years old Clinical indication: Hit back of head on on [place] cabinet, R/O skull FX, neck FX TECHNIQUE: Imaging protocol: Computed tomography images of the cervical spine without contrast. Radiation optimization: All CT scans at this facility use at least one of these dose optimization techniques: automated exposure control; mA and/or kV adjustment per patient size (includes targeted exams where dose is matched to clinical indication); or iterative reconstruction. COMPARISON: No relevant prior studies available. FINDINGS: Bones/joints: No acute fracture or traumatic subluxation. No spondylolisthesis. The atlantooccipital and atlantoaxial articulations are intact. Occipital condyles are intact. Facet joint alignments are maintained. Discs/Spinal canal/Neural foramina: Age-related degenerative disc disease. Multilevel degenerative changes of the cervical spine. Prevertebral Space: No prevertebral soft tissue swelling. Thyroid: Left inferior thyroid 1 cm hypodense nodule. Lungs: Lung apices are normal. Soft tissues: Unremarkable. IMPRESSION: 1. No acute fracture or traumatic subluxation. 2. Left inferior thyroid 1 cm hypodense nodule. Dictated and Authenticated by: Nahun Hammonds MD. Ordering:JASSON Doran MD
[2020-10-21] MEDS: Lidocaine/Epinephri/Tetracaine Topical Gel 3 ML (19:04)
[2020-10-21 19:39] VITALS: BP 146/75; PULSE 59; RESP 16; O2SAT 97
== END 2020-10-21 20:15 | disposition home or self-care (01) ==
PROVIDERS: Emergency Provider Physician Assistant; PCP Family Medicine
DX: S01.01XA Laceration without foreign body of scalp, initial encounter (principal); W01.190A Fall on same level from slipping, tripping and stumbling with subsequent striking against furniture, initial encounter; I10 Essential (primary) hypertension
CPT/HCPCS: 12001; 90471; 70450; 72125

== ENCOUNTER 2024-06-22 13:53 | Outpatient (CLI) | payer MEDICARE, SELFPAY ==
[2024-06-22 12:46] LABS: Abs Immature Grans 0.02 10^3/uL (0.0-0.06); Absolute Basophil Count 0.09 10^3/uL (0.0-0.2); Absolute Eosinophil Count 0.23 10^3/uL (0.0-0.7); Absolute Lymphocyte Count 1.81 10^3/uL (1.2-3.4); Absolute Neutrophil Count 4.78 10^3/uL (1.2-6.7); Basophils % 1.2 %; Eosinophils % 3.1 %; HCT 38.1 % (36.0-46.0); HGB 12.5 g/dL (11.2-15.7); Immature Grans % 0.3 %; MCH 30.3 pg (27.0-33.0); MCHC 32.8 % (32.0-36.0); MCV 92 fL (80-95); MPV 9.7 fL (8.0-11.0); Neutrophils % 63.4 %; Platelet Count 328 10^3/uL (130-400); RBC 4.13 10^6/uL (3.93-5.22); RDW 13.1 % (11.7-14.6); RDW-SD 44.5 fL; WBC 7.53 10^3/uL (4.4-10.8)
[2024-06-22 13:37] LABS: ALT 23 U/L (14-59); Anion Gap 8.6 mmol/L (3-11); BUN 26 mg/dL (7-18); CO2 27.4 mmol/L (21.0-32.0); CREATININE 1.6 mg/dL (0.55-1.02); Calcium 9.5 mg/dL (8.5-10.1); Calculated LDL 103 mg/dL (<100); Chloride 103 mmol/L (98-107); Cholesterol 187 mg/dL (<200); Estimated GFR 35.35 (mL/min/1.73m2); Folate 18.6 ng/mL (8.6-20.0); Glucose 109 mg/dL (74-106); HDL Cholesterol 55 mg/dL (40-60); Potassium 4.5 mmol/L (3.5-5.1); Sodium 139 mmol/L (136-145); Triglyceride 145 mg/dL (<150)
== END 2024-06-22 13:54 | disposition home or self-care (01) ==
LOC: LBO 13:54
PROVIDERS: PCP Family Medicine; Visit Provider Family Medicine
DX: N18.9 Chronic kidney disease, unspecified (principal); D63.1 Anemia in chronic kidney disease; D53.8 Other specified nutritional anemias; R79.89 Other specified abnormal findings of blood chemistry; Z79.1 Long term (current) use of non-steroidal anti-inflammatories (NSAID)
CPT/HCPCS: 36415; 80048; 80061; 82746; 84460; 85025

== ENCOUNTER 2025-06-17 14:27 | Outpatient (CLI) | payer MEDICARE, SELFPAY ==
[2025-06-17 10:19] LABS: Abs Immature Grans 0.03 10^3/uL (0.0-0.06); HCT 35.5 % (36.0-46.0); HGB 12.0 g/dL (11.2-15.7); Immature Grans % 0.3 %; MCH 30.3 pg (27.0-33.0); MCHC 33.8 % (32.0-36.0); MCV 90 fL (80-95); MPV 10.0 fL (8.0-11.0); Platelet Count 299 10^3/uL (130-400); RBC 3.96 10^6/uL (3.93-5.22); RDW 13.4 % (11.7-14.6); RDW-SD 44.4 fL; WBC 8.81 10^3/uL (4.4-10.8)
[2025-06-17 11:07] LABS: Anion Gap 11.0 mmol/L (3-11); BUN 24 mg/dL (7-18); CO2 27.0 mmol/L (21.0-32.0); Calcium 9.6 mg/dL (8.5-10.1); Chloride 101 mmol/L (98-107); Estimated GFR 35.13 (mL/min/1.73m2); Glucose 105 mg/dL (74-106); Potassium 4.0 mmol/L (3.5-5.1); Sodium 139 mmol/L (136-145)
[2025-06-17 11:37] LABS: Iron 90 ug/dL (50-170); Total Iron Binding Capacity 234 ug/dL (250-450); Transferrin Sat 38 % (15-50)
== END 2025-06-17 14:28 | disposition home or self-care (01) ==
LOC: LBO 14:28
PROVIDERS: PCP Family Medicine; Visit Provider Family Medicine
DX: D63.1 Anemia in chronic kidney disease (principal); N18.30 Chronic kidney disease, stage 3 unspecified; Z51.81 Encounter for therapeutic drug level monitoring
CPT/HCPCS: 36415; 80048; 80307; 83540; 83550; 85025